=== PATIENT | female | born 1990 | race Caucasian/White ===

== ENCOUNTER 2024-10-17 14:22 | Emergency (ER) | payer MEDICAID, SELFPAY ==
[2024-10-17] VITALS (77 sets, daily range): BP systolic 80–135; BP diastolic 38–80; PULSE 93–158; RESP 20–52; TEMP 36.8; O2SAT 96–100
--- NOTE | 2024-10-17 14:30 | DI.CT_ITS ---
Exam(s) CT CHEST PE ABD PELVIS W EXAM: CT CHEST PE ABD PELVIS W CLINICAL HISTORY: Septic, IVDU, abd pain, eval septic emboli, source. TECHNIQUE: Imaging Protocol: Axial CT angiography was performed with multi-slice acquisition and m ulti-planar and/or 3D reconstructions. CONTRAST MATERIAL: Intravenous: Omnipaque 350 Contrast volume:100 ml Oral: None COMPARISON: No exams were available for comparison FINDINGS: CHEST: PULMONARY ARTERIES: There are bilateral intraluminal filling defect within by segmental pulmonary art eries in both lower lobes consistent with pulmonary emboli. LUNGS: There are also multiple nodular infiltrates throughout both lung estrada involving all lobes, s ome exhibiting cavitation. These measure up to 2.7 x 2.2 cm size. There are no pleural effusions.. MEDIASTINUM: There is bilateral hilar adenopathy. There is also subcarinal adenopathy. There is no retrocrural adenopathy. No supraclavicular adenopathy. Visualized thyroid unremarkable. CARDIAC: Heart size is normal. There is no pericardial effusion. There is no significant shift of t he interventricular septum.Caliber of the thoracic aorta is within normal limits. No evidence of aor tic dissection. OSSEOUS: No significant osseous lesions.. ABDOMEN: There is no ascites. LIVER: There are no focal hepatic lesions nor dilatation of intrahepatic ducts. GALLBLADDER/BILIARY: No obvious gallbladder pathology. CBD is not dilated. PANCREAS: No evidence of pancreatic mass nor dilatation of the pancreatic duct. SPLEEN: Spleen is enlarged. The craniocaudal measurement of the spleen is 17.5 cm. There are no int rasplenic lesions. No splenic abscess is evident. Splenic and portal veins are patent. ADRENALS: There are no significant adrenal masses. KIDNEYS:No cysts evident. No calculi nor hydronephrosis. No solid renal masses. ABDOMINAL AORTA: Abdominal aorta is not enlarged. LYMPH NODES: There is no retroperitoneal or para-aortic adenopathy. ABDOMINAL WALL/GI: No evidence of significant anterior abdominal wall hernia. No bowel obstruction. PELVIS: LYMPH NODES: There is no intrapelvic nor inguinal adenopathy. GI: No evidence of appendicitis.No evidence of sigmoid diverticulitis. URINARY BLADDER: No calculi nor masses evident REPRODUCTIVE: Uterus and adnexal regions unremarkable. No free fluid in the pelvis evident. OSSEOUS: No significant osseous lesions. No fractures. No listhesis. IMPRESSION: 1. Study is positive for the presence segmental pulmonary emboli in lower lobe vessels both lungs. I n addition, there also multiple nodular masses/infiltrates throughout both lung estrada, some being pa rtially cavitated. No pleural effusions but there is bilateral hilar and subcarinal lymphadenopathy. First consideration here is for septic emboli. 2. There is splenomegaly noted. No evidence of abscess nor other lesions within the enlarged spleen. 3. No ascites. 4. No significant osseous findings. Report called by myself to ER physician 10/17/2024 at 4:30 p.m. RADIATION DOSE DELIVERED: 1,033.02mGy.cm Total DLP DATA REPOSITORY: All CT scans at this facility are submitted to the National Radiology Data Registry (NRDR) Dose Index Registry (DIR) with the [employer] (ACR). RADIATION OPTIMIZATION: All CT scans at this facility use at least one of these dose optimization te chniques: automated exposure control; mA and/or kV adjustment per patient size (includes targeted exa ms where dose is matched to clinical indication); or iterative reconstruction.
[2024-10-17 15:02] LABS: Lactate 6.1 mmol/L (0.6-1.4)
[2024-10-17 15:04] LABS: HCT 33.8 % (36.0-46.0); MCH 28.4 pg (27.0-33.0); MCHC 35.5 % (32.0-36.0); MCV 80 fL (80-95); RBC 4.23 10^6/uL (3.93-5.22); RDW 13.9 % (11.7-14.6); RDW-SD 40.8 fL; WBC 6.93 10^3/uL (4.4-10.8)
[2024-10-17 15:16] LABS: Prothrombin Time 13.2 sec (9.1-11.1)
[2024-10-17 15:26] LABS: Platelet Count 27 10^3/uL (130-400)
[2024-10-17 15:27] LABS: Absolute Lymphocyte Count 0.55 10^3/uL (1.2-3.4); Absolute Monocyte Count 0.49 10^3/uL (0.1-0.8); Bands % 8 %; Metamyelocytes % 1
[2024-10-17 15:28] LABS: ALT 66 U/L (14-59); AST 197 U/L (15-37); Absolute Neutrophil Count 5.82 10^3/uL (1.2-6.7); Albumin 1.9 g/dL (3.4-5.0); Alkaline Phosphatase 122 U/L (46-116); Anion Gap 21.8 mmol/L (3-11); Bilirubin, Total 1.43 mg/dL (0.2-1.0); CO2 14.2 mmol/L (21.0-32.0); Calcium 7.5 mg/dL (8.5-10.1); Chloride 93 mmol/L (98-107); Diff Comment Manual Differential; Estimated GFR 15.37 (mL/min/1.73m2); Glucose 141 mg/dL (74-106); Sodium 129 mmol/L (136-145); Total Protein 7.1 g/dL (6.4-8.2); Troponin I 45 ng/L (<or=51)
[2024-10-17] MEDS: Omnipaque 350 MG/ML 100 ML BTL IJ (15:28)
--- NOTE | 2024-10-17 15:28 | W.ED.GENAD ---
Discharge Plan Disposition Patient Disposition: Transfer-Acute Inpatient Care Specific Acute Inpt Facility: [facility] Condition: Fair Discharge Details Clinical Impression: Severe sepsis with acute organ dysfunction, Endocarditis, Acute septic pulmonary embolism, Thrombocytopenia, Hypokalemia, Prolonged Q-T interval on ECG, Abnormal transaminases, ZULY (acute kidney injury), Hypocalcemia, Acidosis, lactic, Active intravenous drug use, Supraventricular dysrhythmia Primary Care Provider: Jorge Foster ED Provider: Jaclyn Washington Home Meds and New Rx's Prescriptions: No Action No Known Home Meds HPI General Mode of arrival: EMS. Date/Time Provider Initiated Documentation: 10/17/24 14:31. Limitations to Documentation: no limitations. Information obtained by: patient, family and old records reviewed. HPI Narrative: HPI: This is a 34-year-old female patient with a past medical history significant for IVDU, presenting for evaluation of general malaise. Patient reports that for the last week she has had bodyaches, shortness of breath, abdominal pain, and has just not felt well. She is reported by family to have had a recent relapse. The patient reports that she is not sure if she has had fevers but feels like she might have, states that she has tried hot showers for her symptoms without improvement. She has had nausea with vomiting, denies urinary symptoms such as dysuria or hematuria. Reports a childhood allergy to penicillin, rash. brought in by EMS for evaluation, noted to be tachypneic and tachycardic on their physical examination. Exam: Gen: awake and alert, appears acutely ill HEENT: PERRL, EOMs full and without nystagmus. External ears and nose normal, mucous membranes dry. Posterior pharynx without exudate or asymmetry Neck: Supple, full range of motion, no observable masses Lungs: Tachypneic, lung sounds clear and equal bilaterally CV: Heart with tachycardic rate, regular rhythm, strong distal pulses. Unable to auscultate any murmurs though there is a significant amount of background respiratory noise to auscultation Abdomen: Soft, nondistended, generalized tenderness to palpation without rigidity, rebound, guarding MSK: No joint swelling, no redness. Full ROM without limitation, no external traumatic findings. Skin: The patient has extensive scarring on her extremities and abdomen concerning for historical IVDU. No splinter hemorrhages or Janeway lesions Neuro: No apparent focal deficits or facial asymmetry, denies new numbness or tingling alert and oriented Psych: Appropriate for situation. MDM: This is a 34-year-old female patient presenting for evaluation of generalized bodyaches, shortness of breath and abdominal pain. I am concerned given her tachycardia and tachypnea, as well as her general toxic appearance. My differential includes but is not limited to sepsis, bacteremia, endocarditis, pneumonia, septic emboli, viral URI, skin and soft tissue infection, intra-abdominal infection including cholecystitis, appendicitis, diverticulitis, hepatitis, urinary tract infection, nephrolithiasis. I considered metabolic and electrolyte derangements, kidney injury and liver disease. Considered anemia. Will obtain a broad laboratory workup, to include CBC, CMP, lactate, blood cultures, urinalysis. I will obtain a ethanol level as well as a urine drug screen. Given the acute illness with systemic symptoms it is reasonable to proceed with CT pulmonary embolism study as well as CT abdomen and pelvis, and I will obtain a bedside echo. I will provide the patient with 2 L of IV fluids. ED Course: Bedside ultrasound as noted below, concerning for tricuspid vegetation which would represent endocarditis. For this reason a third blood culture was obtained prior to initiation of broad-spectrum antibiotics, to include Zosyn and vancomycin. Laboratory studies reveal no leukocytosis or anemia, but the patient does have notable thrombocytopenia to 27, with no active bleeding at this time. She does have an elevation in her INR to 1.3. Mild decrease in her sodium to 129, potassium to 3.0 (repleted orally and intravenously), with a BUN and creatinine elevation concerning for prerenal ZULY, with a BUN of 92 and a creatinine of 3.8. The patient has a decreased bicarb to 14 and an anion gap of 21, likely lactic acidosis given her initial lactate of 6.1. Urinalysis noninfectious, U tox positive for cocaine, viral swab negative. I reviewed the patient CT imaging, which is most notable for bilateral septic pulmonary emboli as well as a an enlarged spleen. The patient's repeat lactate was 5.5, and 1/3 L of IV fluid was provided. In addition, we repleted her potassium with 20 mEq IV and 40 mEq p.o., provided her with 2 g of mag for her prolonged QTc, and a gram of Tylenol for ongoing body pain. I discussed this case with our hospitalist who feels that she would be better served in a tertiary care facility given the access to [facility], CT surgery, ID, etc. [facility] refused this patient due to capacity, and so I discussed the case with the ICU provider at [facility] who has graciously accepted this patient for admission to their service for ongoing workup and management. While awaiting transfer, I did not the patient to go into a taxi supraventricular dysrhythmia. This was a rapid change, with a sustained rate of 140. She did have a change in the morphology of her P waves, I question accelerated junctional versus slow SVT, no evidence for flutter waves during vagal maneuvers. She remained hemodynamically appropriate during this event, but her blood pressure did decrease slightly from where she had been before. The first episode of tacky dysrhythmia was successfully aborted with vagal maneuvers. She did have a second episode and vagal maneuvers failed, for which she received 6 mg then 12 mg of adenosine to that effect. The patient was transferred from this department by EMS without incident. Jaclyn Washington MD Related Data Home Medications ?Medication ?Instructions ?Recorded ?Confirmed Unknown [No Known Home Meds] 10/17/24 10/17/24 Allergies Allergy/AdvReac Type Severity Reaction Status Date / Time Penicillins Allergy Severe Anaphylaxsi Verified 10/17/24 15:05 s General Stated Complaint: RespSymp FERNY: 3 Course Vital Signs Vital signs: Vital Signs Temperature 36.8 C 10/17/24 14:23 Pulse 126 H 10/17/24 14:23 Respiratory Rate 20 10/17/24 14:23 Blood Pressure 104/58 L 10/17/24 14:23 Pulse Oximetry 96 10/17/24 14:23 Temperature 36.8 C 10/17/24 14:23 Temperature Source Oral 10/17/24 14:23 Pulse 126 H 10/17/24 14:23 Respiratory Rate 20 10/17/24 14:23 Respiratory Effort Short of Breath 10/17/24 14:28 Respiratory Depth Normal 10/17/24 14:28 Blood Pressure 104/58 L 10/17/24 14:23 Pulse Oximetry 96 10/17/24 14:23 Oxygen Delivery Method Room Air 10/17/24 14:23 Oxygen Flow Rate 0 10/17/24 14:23 Pain Level 8 10/17/24 14:23 Lab/Test Results Lab/Test Results: 10/17/24 15:19 Blood Blood Culture - Pending 10/17/24 14:48 Blood Blood Culture - Pending 10/17/24 14:40 Blood Blood Culture - Pending Laboratory Tests Range/Units 10/17/24 14:48 VBG Lactate (0.6-1.4) mmol/L 6.1 H* Procedures Other Description: Cardioversion The patient was noted to transition rapidly to a supraventricular tachydysrhythmia with a fixed rate of 143, and vagal maneuvers were attempted x 1 with resolution and recurrent return to her baseline sinus tachycardia with a rate of the low 100s. She was noted to convert to this tachydysrhythmia once more during this provider's examination. Vagal maneuvers reattempted x 2 without success. We are optimizing the patient's fluid balance and electrolytes and I suspect that this is likely due to her severe systemic illness. Given the distinct change, I am concerned for a potential reentrant rhythm such as SVT, and for this reason the patient was provided with 6 mg followed by 12 mg of adenosine, with resolution of this new rhythm and a return to sinus tachycardia with a rate of 105. The patient tolerated this procedure well with no adverse effects such as low blood pressure or alteration in mental status. Medical Decision Making Quality:SDOH Health Related Social Needs: No Data to Display Critical Care Time Critical Care Time Critical Care Time: Yes Total Critical Care Time: 60 Attestation: Upon my evaluation, this patient had a high probability of imminent or life-threatening deterioration due to severe sepsis without septic shock, endocarditis, septic emboli, thrombocytopenia, hypokalemia, SVT, which required my direct attention, intervention, and personal management. I have personally provided 60 minutes of critical care time exclusive of time spent on separately billable procedures. Time includes review of laboratory data, radiology results, discussion with consultants, and monitoring for potential decompensation. Interventions were performed as documented above. Jaclyn Washington MD [facility] All Active Problems (Updated 10/17/24 @ 19:28 by Jaclyn Washington MD) Supraventricular dysrhythmia (Acute) Active intravenous drug use (Acute) Acidosis, lactic (Acute) Hypocalcemia (Acute) ZULY (acute kidney injury) (Acute) Abnormal transaminases (Acute) Prolonged Q-T interval on ECG (Acute) Hypokalemia (Acute) Thrombocytopenia (Chronic) Acute septic pulmonary embolism (Acute) Endocarditis (Acute) Severe sepsis with acute organ dysfunction (Acute) Social History Smoking/Tobacco Use Status: Current every day Smoking risk assessment performed?: Yes Alcohol Intake: former Drug use: Current Sobriety Substance use type: former substance user and IV drugs Housing: apartment POCUS Exam (ED) Limited Cardiac Exam DATE OF EXAM: 10/17/24 TIME OF EXAM: 15:29 PROVIDER THAT PERFORMED THE STUDY: Jaclyn Washington IS THIS A REPEAT EXAM DURING THIS ENCOUNTER: no REASON FOR EXAM: Septic Shock VISUALIZED STRUCTURES: Four Chambers VIEW OBTAINED: Parasternal long-axis, Parasternal short-axis and Subxiphoid PERTINENT FINDINGS/IMPRESSION: Other Hyperdynamic, concern for vegetation on tricuspid valve Exam complete
[2024-10-17 15:29] LABS: INR 1.3 (0.9-1.1); Poikilocytes 1+
--- NOTE | 2024-10-17 15:30 | RT.EKG_ITS ---
APPROVED REPORT Exam: Resting ECG Reason for Exam: Sepsis Patient Location: E HR:114 bpm ECG Measurements Heart Rate 114 AXIS MS 126 P 80 QRSd 103 QRS 65 QT 393 T 37 QTc 541 Conclusion Sinus tachycardia, rate 114 Prolonged QTc No STEMI
[2024-10-17 15:31] LABS: ETHANOL BLOOD < 3.0 mg/dL (<10)
[2024-10-17 15:33] LABS: BUN 92 mg/dL (7-18); CREATININE 3.8 mg/dL (0.55-1.02)
[2024-10-17] MEDS: Normal Saline - Diluent 50 ML VIAL IJ (15:44)
[2024-10-17] MEDS: Lactated Ringers 1,000 ML 1000 ML IV ×3 (15:58→18:34)
--- OUTSIDE RECORDS SUMMARY | 2024-10-17 16:17 | XMS_ITS | Encounter Summary ---
Author Organization [facility] [place] [address] Care Team Providers Care Publications Manager Name Role Phone Heather Colunga CNM Primary Care Provider + Encounter Details Date Type Department Care Team (Late st Contact Info) Description 04/12/2013 1:41 PM EDT - 04/12/2013 11:59 PM EDT Hospital [place] [id number] CLINIC, DR KADY Izquierdo, Duarte Meek MD [facility] [address] [place] [phone] Discharge Disposition: Home Social History Tobacco Use Types Packs/Day Years Used Date Smoking Tobacco: Every Day Cigarettes Comments Yes Sex and Gender Information Value Date Recorded Sex Assigned at Not on file Gender Identity Not on file Sexual Orientation Not on file documented as of this encounter Medications at Time of Discharge Medication Sig Dispensed Refills Start Date End Date VITS W-CA,FE,FA,<1MG, ( VITAMIN ORAL) Take by mouth. documented as of this encounter Plan of Treatment Not on file documented as of this encounter Procedures Procedure Name Priority Date/Time Associated Diagnosis Comments US OB DETAILED MORPHOLOGY Routine 04/12/2013 2:19 PM EDT documented in this encounter Results * US OB Targeted Morphology (04/12/2013 2:19 PM EDT) Anatomical Region Laterality Modality Pelvis, Abdomen Ultrasound 04/12/2013 2:19 PM EDT Narrative 04/12/2013 3:36 PM EDT ?OBSTETRICS REPORT ? (Signed Final 04/12/2013 03:36 pm) Patient Info ID: ? [id number] ? : ??[birth year] (22 yrs) Name: ? CATHY Tomas VICTORIA ?Visit Date: 04/12/2013 02:16 pm Performed By Performed By: ?Margaret Mustafa RDMS Attending: ? John SHARMA, E ??Candie Referred By: ? DUARTE IZQUIERDO MD OB History : ??4 BMI: ?29.8 Service(s) Provided [facility] - Targeted Morphology - Genetics - ? 19402 [id number] Indications FLUID COLLECTION AT POINT OF CORD INSERTION TO PLACENTA; NANDO 08/20/13 MFM TO READ Evaluation Num Of Fetuses: ?1 Heart Rate: ??161 ?bpm Cardiac Activity: ??Observed, normal rhythm Presentation: ?Breech Placenta: ?Anterior P. Cord ?Within Normal Limits Insertion: Amniotic Fluid NARGIS FV: ?Normal -------- Biometry -------- BPD: ?52.5 ??mm ?G. Age: ?? 22w 0d OFD: ?69.7 ??mm HC: ?192.6 ??mm ?G. Age: ?? 21w 4d AC: ?167.2 ??mm ?G. Age: ?? 21w 5d FL: ? 35.7 ??mm ?G. Age: ?? 21w 2d HUM: ?35.1 ??mm ?G. Age: ?? 22w 0d CER: ?23.2 ??mm ?G. Age: ?? 21w 4d NFT: ?4.17 ??mm CI: ?75.3 ??% ? 70 - 86 FL/HC: ? 18.5 ??% ? 15.9 - 20.3 HC/AC: ? 1.15 ?1.06 - 1.25 FL/BPD: ?68.0 ??% FL/AC: ? 21.4 ??% ? 20 - 24 Est. FW: ? 433 ?? gm ?0 lb 15 oz Gestational Age LMP: ? 22w 3d ?Date: ??11/06/12 ? NANDO: ?08/13/13 U/S Today: ? 21w 4d ?NANDO: ?08/19/13 Best: ?21w 3d ?? Det. By: ??Early ?NANDO: ?08/20/13 ? Ultrasound ? (01/26/13) Targeted Anatomy Central Nervous System Calvarium: ?Within Normal Limits Intracranial: ? Within Normal Limits Lat. Ventricles: ?Within Normal Limits Cerebellum: ? Within Normal Limits Choroid Plexus: ? Within Normal Limits Cisterna Magna: ? Within Normal Limits Spine Cervical: ? Visualized Thoracic: ? Visualized Lumbar: ? Visualized Sacral: ? Visualized Head/Neck Face: ? Within Normal Limits Nuchal Fold: ?Within Normal Limits Thorax Four Chamber: ? Within Normal Limits Cardiac Motion: ? Normal Rhythm R Outflow Tract: ?Visualized L Outflow Tract: ?Visualized Cardiac [place]: ? Visualized Diaphragm: ?Visualized Abdomen Ventral Wall: ? Visualized Stomach: ?Visualized Lt Kidney: ?Visualized Rt Kidney: ?Visualized Bladder: ?Visualized Extremities Lt Humerus: ? Within Nomal Limits Rt Humerus: ? Within Normal Limits Lt Forearm: ? Within Normal Limits Rt Forearm: ? Within Normal Limits Lt Hand: ?Within Normal Limits Rt Hand: ?Within Normal Limits Lt Femur: ? Within Normal Limits Rt Femur: ? Within Normal Limits Lt Lower Leg: ? Within Normal Limits Rt Lower Leg: ? Within Normal Limits Lt Foot: ?Visualized Rt Foot: ?Visualized Other Umbilical Cord: ? 3 vessel cord Cord Insertion: ? WIthin Normal Limits Comment: ? Nasal Bone: Visualized Cervix Uterus Adnexa Uterus: ?Synechiae seen Left Ovary: ?Not visualized Right Ovary: ?? Not visualized Impression 2nd Trimester - Targeted Morphology- Summary Single intrauterine with a gestational age of 21w 3d based on early outside ultrasound. Composite age based on the current ultrasound alone is 21w 4d. Amniotic fluid volume is normal. Current growth parameters are consistent indicating normal growth. There is a uterine synechiae in the posterior aspect of the uterus. There is a membrane separation, over the surface of the placenta, which may represent a venous cordero on the surface of the placenta. It measures 4 x 1.7 x 3.5cm. Detailed anatomic evaluation was performed and no structural abnormalities are noted. I ??viewed the images and agree with the above interpretation. Thank you for allowing us to participate in the care of CATHY VICTORIA. Please do not hesitate to call if you have any questions. ?Manoj Lopez MD Electronically Signed Final Report ?? 04/12/2013 03:36 pm Procedure Note Manoj Lopez MD - 04/12/2013 OBSTETRICS REPORT (Signed Final 04/12/2013 03:36 pm) Patient Info ID: [id number] : [birth year] (22 yrs) Name: CATHY VICTORIA Visit Date: 04/12/2013 02:16 pm Performed By Performed By: Margaret Mustafa [facility] Attending: Manoj Lopez MD Referred By: DUARTE IZQUIERDO MD OB History : 4 BMI: 29.8 Service(s) Provided [facility] - Targeted Morphology - Genetics - [id number] Indications FLUID COLLECTION AT POINT OF CORD INSERTION TO PLACENTA; NANDO 08/20/13 M TO READ Evaluation Num Of Fetuses: 1 Heart Rate: 161 bpm Cardiac Activity: Observed, normal rhythm Presentation: Breech Placenta: Anterior P. Cord Within Normal Limits Insertion: Amniotic Fluid NARGIS FV: Normal -------- Biometry -------- BPD: 52.5 mm G. Age: 22w 0d OFD: 69.7 mm HC: 192.6 mm G. Age: 21w 4d AC: 167.2 mm G. Age: 21w 5d FL: 35.7 mm G. Age: 21w 2d HUM: 35.1 mm G. Age: 22w 0d CER: 23.2 mm G. Age: 21w 4d NFT: 4.17 mm CI: 75.3 % 70 - 86 FL/HC: 18.5 % 15.9 - 20.3 HC/AC: 1.15 1.06 - 1.25 FL/BPD: 68.0 % FL/AC: 21.4 % 20 - 24 Est. FW: 433 gm 0 lb 15 oz Gestational Age LMP: 22w 3d Date: 11/06/12 NANDO: 08/13/13 U/S Today: 21w 4d NANDO: 08/19/13 Best: 21w 3d Det. By: Early NANDO: 08/20/13 Ultrasound (01/26/13) Targeted Anatomy Central Nervous System Calvarium: Within Normal Limits Intracranial: Within Normal Limits Lat. Ventricles: Within Normal Limits Cerebellum: Within Normal Limits Choroid Plexus: Within Normal Limits Cisterna Magna: Within Normal Limits Spine Cervical: Visualized Thoracic: Visualized Lumbar: Visualized Sacral: Visualized Head/Neck Face: Within Normal Limits Nuchal Fold: Within Normal Limits Thorax Four Chamber: Within Normal Limits Cardiac Motion: Normal Rhythm R Outflow Tract: Visualized L Outflow Tract: Visualized Cardiac [place]: Visualized Diaphragm: Visualized Abdomen Ventral Wall: Visualized Stomach: Visualized Lt Kidney: Visualized Rt Kidney: Visualized Bladder: Visualized Extremities Lt Humerus: Within Nomal Limits Rt Humerus: Within Normal Limits Lt Forearm: Within Normal Limits Rt Forearm: Within Normal Limits Lt Hand: Within Normal Limits Rt Hand: Within Normal Limits Lt Femur: Within Normal Limits Rt Femur: Within Normal Limits Lt Lower Leg: Within Normal Limits Rt Lower Leg: Within Normal Limits Lt Foot: Visualized Rt Foot: Visualized Other Umbilical Cord: 3 vessel cord Cord Insertion: WIthin Normal Limits Comment: Nasal Bone: Visualized Cervix Uterus Adnexa Uterus: Synechiae seen Left Ovary: Not visualized Right Ovary: Not visualized Impression 2nd Trimester - Targeted Morphology- Summary Single intrauterine with a gestational age of 21w 3d based on early outside ultrasound. Composite age based on the current ultrasound alone is 21w 4d. Amniotic fluid volume is normal. Current growth parameters are consistent indicating normal growth. There is a uterine synechiae in the posterior aspect of the uterus. There is a membrane separation, over the surface of the placenta, which may represent a venous cordero on the surface of the placenta. It measures 4 x 1.7 x 3.5cm. Detailed anatomic evaluation was performed and no structural abnormalities are noted. I viewed the images and agree with the above interpretation. Thank you for allowing us to participate in the care of CATHY VICTORIA. Please do not hesitate to call if you have any questions. Manoj Lopez MD Electronically Signed Final Report 04/12/2013 03:36 pm Duarte Izquierdo MD IMG US OB TAL YOUNGER documented in this encounter Visit Diagnoses Not on filedocumented in this encounter Care Teams Publications Manager Relationship Specialty Start Date End Date Heather Colunga CNM [address] [place] [address] PCP - General 04/09/13 05/03/13 documented as of this encounter
--- OUTSIDE RECORDS SUMMARY | 2024-10-17 16:17 | XMS_ITS | Encounter Summary ---
Author Organization Formerly [facility] [place] [address] Care Team Providers Care Dog Food Shredder Operator Name Role Phone Heather Colunga CNM Primary Care Provider + Reason for Visit * Reason Comments Advice Only Encounter Details Date Type Department Care Team ([facility] st Contact Info) Description 04/12/2013 3:00 PM EDT Office Visit Obstetrics [place] [address] aMnoj Lopez MD [facility] [address] OBSTETRICS [place] [address] Placental abnormality (Primary Dx) Discharge Disposition: Home Social History Tobacco Use Types Packs/Day Years Used Date Smoking Tobacco: Every Day Cigarettes Smokeless Tobacco: Never Alcohol Use Standard Drinks/Week Comments No 0 (1 standard drink = 0.6 oz pur e alcohol) Comments Yes Sex and Gender Information Value Date Recorded Sex Assigned at Not on file Gender Identity Not on file Sexual Orientation Not on file documented as of this encounter Last Filed Vital Signs Vital Sign Reading Time Taken Comments Blood Pressure 104/62 04/12/2013 2:53 PM EDT Pulse - - Temperature - - Respiratory Rate - - Oxygen Saturation - - Inhaled Oxygen Concentration - - Weight 85.8 kg (189 lb 1.6 oz) 04/12/2013 2:53 P M EDT Height 172.7 cm (5' 8) 04/12/2013 2:53 PM EDT Body Mass Index 28.75 04/12/2013 2:53 PM EDT documented in this encounter Progress Notes * Manoj Lopez MD - 04/12/2013 5:04 PM EDT Diagnosis/Maternal Medicine Consult Note Cathy Victoria is a 22 y.o. year old female who is at 21w4d gestation. She is seen in consultation at the request of Duarte Izquierdo MD for evaluation of anatomy and placenta. She was seen today for maternal- medicine consultation and ultrasound evaluation. Review of Systems Constitutional:feels well Movement: normal Contractions: none Leaking: None Bleeding: None There are no active problems to display for this patient. Past Medical History Diagnosis Date ??? Asthma ??? Anxiety Past Surgical History Procedure Date ??? Myringotomy 1992 ??? Tonsillectomy 1994 No family history on file. Social History Occupational History ??? Not on file. Social History Main Topics ??? Smoking status: Current Everyday Smoker -- 0.5 packs/day ??? Smokeless tobacco: Never Used ??? Alcohol Use: No ??? Drug Use: No ??? Sexually Active: Yes -- Male partner(s) OB History Grav Para Term Abortions TAB SAB Ect Mult Living 4 2 2 1 1 2 # Outc Date GA Lbr Kodak/2nd Wgt Sex Del Anes PTL Lv 1 CUR 2 TRM 3 TRM 4 TAB Current Outpatient Prescriptions Medication Sig Dispense Refill ? ? VITS W-CA,FE,FA,<1MG, ( VITAMIN ORAL) Take by mouth. Allergies Allergen Reactions ??? Penicillins Ultrasound Date: 04/13/2013 Amniotic fluid volume normal Placenta posterior ; 4 x 1.7 x 3 cm placental cordero on anterior surface of placenta. Uterine synechiae: left lateral aspect of uterus Presentation breech Growth appropriate for gestational age anatomy appears within normal limits. Physical Exam BP 104/62 Ht 172.7 cm (5' 8) Wt 85.775 kg (189 lb 1.6 oz) BMI 28.75 kg/m2 General: alert, well appearing, in no apparent distress, oriented to person, place and time HEENT: normocephalic, atraumatic Neurologic:alert, oriented, normal speech, no focal findings or movement disorder noted Psychiatric: Affect is Appropriate.; anxious appearing. Assessment and Recommendations: 22 y.o. year old female at 21w4d weeks gestation with normal appearing anatomy and appropriate growth, and what is likely a placental cordero or subchorionic hemorrhage on the surface of the placenta. The patient and her family were extremely anxious throughout the appointment, and remained standing the entire time, despite my suggesting they sit down to be more comfortable. We reviewed the ultrasound images in detail. We discussed the possible increased risk for growth disturbance, ruptured membranes/ delivery, as well as the fact that while these risks maybe increased, there is a high likelihood of an uncomplicated . I recommend local follow-upultrasound for growth at 28, 32 and 36 weeks. I strongly encouraged the patient to pursue smoking cessation. I appreciate the opportunity to be involved in this patients care, and am available if further questions should arise. Manoj LOPEZ MD 04/13/2013 Cc: Duarte Izquierdo MD [address] [place] [address] , with copy of ultrasound report documented in this encounter Plan of Treatment Not on file documented as of this encounter Visit Diagnoses Diagnosis Placental abnormality- Primary Other placental conditions affecting management of mother, unspecified as to episode of care documented in this encounter Care Teams Dog Food Shredder Operator Relationship Specialty Start Date End Date Heather Colunga CNM [address] [place] [address] PCP - General 04/09/13 05/03/13 documented as of this encounter
--- OUTSIDE RECORDS SUMMARY | 2024-10-17 16:17 | XMS_ITS | Clinical Summary ---
Author Organization [facility] Address [facility] [place] [address] Care Team Providers Care Energy Control Officer Name Role Phone Phill Musa MD Primary Care Provider [phone] Allergies Active Allergy Reactions Criticality Noted Date Comments Penicillins Medium 04/12/2013 Medications Medication Sig Dispensed Refills Start Date End Date Status VITS W-CA,FE,FA,<1MG, ( VITAMIN ORAL) Take by mouth. Active Social History Tobacco Use Types Packs/Day Years Used Date Smoking Tobacco: Every Day Cigarettes Smokeless Tobacco: Never Alcohol Use Standard Drinks/Week Comments No 0 (1 standard drink = 0.6 oz pur e alcohol) Sex and Gender Information Value Date Recorded Sex Assigned at Not on file Gender Identity Not on file Sexual Orientation Not on file Last Filed Vital Signs Vital Sign Reading [...] Mass Index 28.75 04/12/2013 2:53 PM EDT Plan of Treatment Health Maintenance Due Date Last Done Comments HIV screen 2009 Hepatitis C Screening 2009 Hepatitis B vaccine (0-59 yrs) (1) 2010 Tetanus/Diphtheria/Pertussis Vaccines (1 - Tdap) 07/24 HPV test 2021 PAP Smear 2021 Covid-19 Vaccine (1 - 2023- season) 2024 Influenza (Flu) vaccine (1 o f 1 - Influenza standard series) 07/04/2024 Care Teams Energy Control Officer Relationship Specialty Start Date End Date Phill Musa MD PCP - General 05/04/13
[2024-10-17 16:19] LABS: Bilirubin Small (Negative); Blood Moderate (Negative); Clarity Cloudy (Clear); Glucose Negative (Negative); Ketones Negative (Negative); Leukocyte Esterase Negative (Negative); Nitrite Negative (Negative); Specific Gravity 1.025 (1.005-1.025); Urobilinogen 0.2 mg/dL (Up to 0.2)
[2024-10-17] MEDS: PIPERACILLIN/TAZO 4.5 GM in Normal Saline 100 ML IVPB (16:27)
[2024-10-17 16:32] LABS: Bacteria Moderate HPF (Negative); C & S Indicated? No; Crystals Moderate Amorphous HPF (Negative); Epithelial Cells Rare HPF (Negative); Mucus Negative (Negative); Other Cells Few Renal (Negative)
[2024-10-17 16:33] LABS: *AMPHETAMINES SCREEN URINE Negative (Negative); *BARBITURATES SCREEN URINE Negative (Negative); *BENZODIAZEPINES SCREEN URINE Negative (Negative); Cannabinoids THC Negative (Negative); Cocaine Screen,Urine Positive (Negative); METHADONE URINE SCREEN Negative (Negative); OPIATES URINE SCREEN Negative (Negative)
[2024-10-17 16:34] LABS: Tricyclic Antidepressants Negative (Negative)
[2024-10-17 16:48] LABS: COVID-19 PCR Negative (Negative); Influenza A PCR Negative (Negative); Influenza B PCR Negative (Negative); RSV PCR Negative (Negative)
[2024-10-17 16:48] LABS: MRSA PCR Negative (Negative)
[2024-10-17 16:50] LABS: Source Nasopharynx
[2024-10-17 17:15] LABS: Troponin I 28 ng/L (<or=51)
--- NOTE | 2024-10-17 17:30 | RT.EKG_ITS ---
APPROVED REPORT Exam: Resting ECG Reason for Exam: SVT Patient Location: E HR:149 bpm ECG Measurements Heart Rate 149 AXIS [place] 100 P 11 QRSd 102 QRS 53 QT 356 T 268 QTc 560 Conclusion Supraventricular tachydysrhythmia, question accelerated junctional vs SVT Prolongued QTc Rate related Twave abnormalities
[2024-10-17] MEDS: Potassium Chloride 20 MEQ TABCR 40 MEQ PO (17:34)
[2024-10-17] MEDS: POTASSIUM CHLORIDE 10 MEQ/100 ML BAG 100 MEQ IV_INF ×2 (17:34→19:06)
[2024-10-17 17:42] LABS: Magnesium 2.3 mg/dL (1.8-2.4)
--- NOTE | 2024-10-17 17:45 | RT.EKG_ITS ---
APPROVED REPORT Exam: Resting ECG Reason for Exam: SVT Patient Location: E HR:101 bpm ECG Measurements Heart Rate 101 AXIS [place] 145 P 66 QRSd 99 QRS 64 QT 430 T 40 QTc 559 Conclusion Sinus tachycardia, rate 101 Prolongued QTc No STEMI
[2024-10-17 17:55] LABS: Lactate 5.5 mmol/L (0.6-1.4)
--- NOTE | 2024-10-17 18:15 | RT.EKG_ITS ---
APPROVED REPORT Exam: Resting ECG Reason for Exam: svt Patient Location: E HR:143 bpm ECG Measurements Heart Rate 143 AXIS [place] 108 P 11 QRSd 102 QRS 62 QT 360 T -36 QTc 555 Conclusion Supraventricular tachydysrhythmia, question accelerated junctional vs SVT Prolongued QTc Rate related Twave abnormalities
[2024-10-17 18:21] LABS: Troponin I 28 ng/L (<or=51)
[2024-10-17] MEDS: MAGNESIUM SULFATE 2 GM/50 ML BAG IV_INF (18:27)
--- NOTE | 2024-10-17 18:30 | RT.EKG_ITS ---
APPROVED REPORT Exam: Resting ECG Reason for Exam: SVT Patient Location: E HR:104 bpm ECG Measurements Heart Rate 104 AXIS [place] 140 P 62 QRSd 98 QRS 65 QT 406 T 49 QTc 533 Conclusion Sinus tachycardia, rate 104 Prolongued QTc No STEMI
[2024-10-17] MEDS: Adenosine 6 MG/2 ML VIAL ×2 (18:51)
[2024-10-17] MEDS: ACETAMINOPHEN 1,000 MG/100 ML BAG 400 MG IVPB (20:00)
--- NOTE | 2024-10-18 01:01 | NUR.NOTE ---
Blood Culture result-Gram Positive Cocci in Clusters in both aerobic and anaerobic bottles. [facility] Results successfully faxed to [phone]. Nursing Note:
--- NOTE | 2024-10-18 02:20 | NUR.NOTE ---
Aerobic blood culture bottle positive-gram positive cocci in clusters, report faxed to [facility]-patient transferred to @ [phone].Nursing Note:
== END 2024-10-17 20:39 | disposition short-term general hospital (02) ==
PROVIDERS: Emergency Provider Emergency Medicine; PCP Physician Assistant
DX: R65.20 Severe sepsis without septic shock (principal); I26.90 Septic pulmonary embolism without acute cor pulmonale; R16.1 Splenomegaly, not elsewhere classified; E87.6 Hypokalemia; D69.6 Thrombocytopenia, unspecified; E83.51 Hypocalcemia; I38 Endocarditis, valve unspecified; R94.31 Abnormal electrocardiogram [ECG] [EKG]; R74.01 Elevation of levels of liver transaminase levels; E87.20 Acidosis, unspecified
CPT/HCPCS: 36410; 71275; 74177; 80053; 80307; 87040; 87077; 87637; 87641; 93005; 93308; 96365; 96366; 96367; 96368; 96375; 99285; 80320; 81003; 81015; 83605; 83735; 84484; 85025; 85610; 87186; 93010; J0131; J0153; J2543; J3370; J3475; J3480; J3490

== ENCOUNTER 2024-11-23 16:32 | Inpatient (IN) | payer MEDICAID, SELFPAY ==
[2024-11-23 17:49] VITALS: BP 114/76; PULSE 91; RESP 14; TEMP 36; O2SAT 100
--- NOTE | 2024-11-23 18:18 | W.PM.HP.N ---
Date of service: 11/23/24 Time of Service: 18:18 Assessment and Plan Assessment and plan (1) MSSA bacteremia: Status: Acute Assessment and plan: [facility] records reviewed, case discussed with inpatient team from [facility]. Will plan to complete 9 more days of IV antibiotics through 12/01, cefazolin. F/u MRI spine and TTE as below. She will have PICC discontinued at discharge. (2) Infective endocarditis of tricuspid valve: Status: Acute Assessment and plan: Source of several embolic infections, infection has been controlled with therapy for above. Surgery for valve planned after discharge back at [facility]. (3) Opioid use disorder: Status: Acute Assessment and plan: We discussed options. She would like to avoid opioid agonist therapy, though she has been getting oral hydromorphone prn pain while inpatient. We did discussed naltrexone, but with upcoming surgery she is not a good candidate for this. Discussed non-medical therapy, support. (4) Right heart failure: Assessment and plan: Assciated with infected tricuspid valve. No signs of active CHF currently. Monitor. repeat echocardiogram recommended next week prior to discharge. (5) Smoker: Status: Acute Assessment and plan: Continue nicotene TD. (6) Septic pulmonary embolism: Assessment and plan: Therapeutic anticoagulation not recommended upon transfer from [facility]. Treating infection as above. (7) DVT prophylaxis: Status: Acute Assessment and plan: LMWH (8) Septic discitis of lumbar region: Status: Acute Assessment and plan: A/w epidural abscess, septic facet arthritis. F/u MRI w/wo recommended next week prior to completing therapy. (9) Discharge planning issues: Status: Acute Assessment and plan: Will need plan to avoid relapse after completing antibiotics 12/01, planning valve replacement 12/15/24 at [facility]. Other issues: suture removal right shoulder 11/24 weekly labs done 11/22, CBC and Cr due 11/29 Hep A/B vaccine prior to discharge Will need repeat HepB core Ab as outpatient in early December (10) Anemia: Status: Chronic Assessment and plan: a/w severe acute infection. Hgb 9.8 on 11/22 at [facility], follow History of Present Illness History of Present Illness Chief Complaint: valve infection Narrative: 34 yo F with history of IVDU and opioid use disorder and smoking who was admitted to [facility] after transferring from [facility] ED 10/17/24 with sepsis, tricuspid valve perforation secondary to endocarditis. MSSA bacteremia identified and treated. Her course was complicated by septic pulmonary emboli and associated right heart failure, and septic joint infections of her right shoulder, right knee, and lumbar spine with epidural abscess. She underwent debulking procedure of endocarditis with IR on 11/01. She had an I&D of septic right shoulder 11/10 and septic right knee 11/14. She had a negative aspiration of her left shoulder joint. She was initially on medical treatment for opioid use disorder but later changed her mind and was tapered off methadone. She states she feels better off of all medication and is confident she can stay away from drugs as she feels highly motivated. She feels well on admission. No chest pain, SOB, palpitations, or lightheadedness. No fevers/chills. She has been eating well. No GI or symptoms. Her shoulders and right knee are still stiff. Review of Systems All systems reviewed & are unremarkable except as noted in HPI and below PFSH All Active Problems (Updated 11/24/24 @ 09:29 by Ervin Bartlett) Anemia (Chronic) Septic discitis of lumbar region (Acute) MSSA bacteremia (Acute) Opioid use disorder (Acute) Discharge planning issues (Acute) Smoker (Acute) DVT prophylaxis (Acute) Septic arthritis of knee, right (Acute) Septic arthritis of shoulder, right (Acute) Infective endocarditis of tricuspid valve (Acute) Medical History (Updated 11/24/24 @ 09:29 by Ervin Bartlett) Ectopic atrioventricular node tachycardia Septic pulmonary embolism Right heart failure Social History (Updated 11/23/24 @ 19:55 by Ervin Bartlett) Smoking/Tobacco Use Status: Current every day Smoking risk assessment performed?: Yes Alcohol Intake: former Drug use: Current Sobriety Substance use type: former substance user and IV drugs Housing: house Additional Social history: Living with mother and 3 kids in [facility] Allergies and Home Medications Allergies Allergy/AdvReac Type Severity Reaction Status Date / Time Penicillins Allergy Severe Anaphylaxsi Verified 10/17/24 15:05 s Home Medications ?Medication ?Instructions ?Recorded ?Confirmed ?Type Unknown [No Known Home Meds] 10/17/24 11/23/24 History Exam Narrative Exam Narrative: GEN: Alert and oriented x 4, pleasant and cooperative, gives linear history. No acute distress at rest. HEENT: Head atraumatic. Conjunctiva clear, no icterus. PEERL, EOMI. no rhinorrhea. MMM, OP benign. Neck is supple with no masses or lymphadenopathy, trachea midline LUNGS: CTAB with normal effort CV: RRR with 2/6 systolic murmur at apex to axilla. No gallops rubs. ABD: active bowel sounds, soft, nontender and nondistended. No masses. EXT: no cyanosis, clubbing, or edema MSK: No joint redness or heat. Right shoulder with diffusely limited ROM, mildly tender. Right knee also mild tenderness and effusion. NEURO: CN 2-12 grossly intact. Normal movement of 4 extremities. Normal speech and coordination. No tremor SKIN: No rashes or open wounds. PSYCH: normal mood and affect Results Last Vital Signs Temp 36.0 C L 11/23/24 17:49 Pulse 91 H 11/23/24 17:49 Resp 14 11/23/24 17:49 BP 114/76 11/23/24 17:49 Pulse Ox 100 11/23/24 17:49 Time Spent Time spent with Patient: >75 minutes Time was spent: preparing to see the patient(eg.review tests), obtaining and/or reviewing separately otained hiistory, ordering medications,tests, procedures, referring, communicating with other health workforce investment act career manager, indepentently interpreting results, counseling the patient and care coordination
[2024-11-23 19:37] VITALS: BP 105/66; PULSE 95; RESP 15; TEMP 36.5; O2SAT 100
--- NOTE | 2024-11-23 19:59 | W.PC.ACHO ---
Registration Status: Primary Language: Preferred Language: Medical / Surgical History (Last Updated 11/23/24 @ 18:33 by Ervin Bartlett) Septic pulmonary embolism Right heart failure Most Recent Vital Signs Temperature 36.5 C 11/23/24 19:37 Temperature Source Tympanic 11/23/24 19:37 Pulse 95 H 11/23/24 19:37 Pulse Rhythm Regular 11/23/24 17:49 Respiratory Rate 15 11/23/24 19:37 Respiratory Effort Normal, Non-Labored 11/23/24 17:49 Respiratory Depth Normal 11/23/24 17:49 Respiratory Pattern Normal 11/23/24 17:49 Blood Pressure 105/66 11/23/24 19:37 Pulse Oximetry 100 11/23/24 19:37 Oxygen Delivery Method Room Air 11/23/24 19:37 Oxygen Flow Rate 0 11/23/24 19:37 Pain Level 0 11/23/24 19:37 Allergies Penicillins Allergy (Severe, Verified 10/17/24 15:05) Anaphylaxsis Diet Orders Category Date Time Status Regular/Normal [DIET] Nutrition 11/23/24 Dinner Active Falls Risk Assessment History of Falls No History 11/23/24 17:49 Contributing Factors No Factors 11/23/24 17:49 Ambulatory Aids Independent 11/23/24 17:49 Tubes/Lines W/no contributing factors 11/23/24 17:49 Gait Evaluation No gait disturbance 11/23/24 17:49 Cognition No cognitive impairment 11/23/24 17:49 Fall Total Score 10 11/23/24 17:49 Level of Risk Standard/Low Risk 11/23/24 17:49 Problems (Last Updated 11/23/24 @ 18:33 by Ervin Bartlett) Discharge planning issues (Acute) Smoker (Acute) DVT prophylaxis (Acute) Septic arthritis of knee, right (Acute) Septic arthritis of shoulder, right (Acute) Infective endocarditis of tricuspid valve (Acute) v v v v v v v v v Sending and/or Receiving Nurses: Please use comment section below to note any information pertinent to the patient hand-off not included above. Information / Comments: Report received from:Tiana at [facility] at 1650 11/23
[2024-11-23] MEDS: Nicotine 21 MG/24 HR PATCH TD (23:10)
[2024-11-23] MEDS: ceFAZolin 2 GM/50 ML BAG IVPB (23:10)
[2024-11-23] MEDS: Metoprolol 25 MG TAB PO (23:12)
[2024-11-23] MEDS: Normal Saline Flush 10 ML SYR IVP (23:13)
[2024-11-23 23:53] VITALS: BP 107/74; PULSE 93; RESP 15; TEMP 36.6; O2SAT 100
[2024-11-24 08:02] VITALS: BP 116/66; PULSE 82; RESP 16; TEMP 36.5; O2SAT 98
[2024-11-24] MEDS: Enoxaparin 30 MG/0.3 ML SYR SC (08:37)
[2024-11-24] MEDS: Metoprolol 25 MG TAB PO ×2 (08:37→21:24)
[2024-11-24] MEDS: Normal Saline Flush 10 ML SYR IVP ×4 (08:38→21:22)
[2024-11-24] MEDS: ceFAZolin 2 GM/50 ML BAG IVPB ×2 (08:38→16:36)
--- NOTE | 2024-11-24 09:05 | NUR.NOTE ---
Stitches from R shoulder removed per order from [facility]. Nursing Note:
[2024-11-24] MEDS: Nicotine 21 MG/24 HR PATCH TD (11:23)
--- NOTE | 2024-11-24 15:47 | CHAPLAIN ---
Cathy was sitting up in bed when I visited. She said she's fine when I introduced myself and explained my role. Cathy said her mom will be in to visit later today. I will continue to visit.
--- NOTE | 2024-11-24 15:58 | CMSA_ITS ---
Date of service: 11/24/24 Time of Service: 08:45 SB Psychosocial/Act. [facility] Admission Admission Date: 11/23/24 Admission From:: [facility] Diagnosis:: bacteremia, infective endocarditis of tricuspid valve, epidural abscess, septic arthritis Swing Bed Admission Swing Bed Admit Date:: 11/23/24 Swing Bed Level of Care: Level 1/SNF Social Supports PREVIOUS FUNCTIONAL STATUS/SOCIAL/FAMILY SUPPORTS:: Cathy lives with her Mom, Paris, and her 3 children Kenny 16, Rolf 14, Luis 11, in an apartment i [facility]. Cathy is not currently working. Cathy has a history of IVDA, and is very pleased to be clean. Her main goal is to get healthy, and stay sober. She was offered the Rumper, and was informed that the Senior Loss Control Specialist is available to her at any time should she feel that she needs it. Cathy is independent in all of her ADLs. Prior to Admission Living Arrangements/Environment Prior to Admission:: Independent, as above, with mom and 3 children in apartment in [place]. Education Highest Grade Completed:: 11 Where did you attend School:: [employer] Work History Employment Status:: currently unemployed Benefits Financial: Medicaid Jainism Active Nondenominational Member:: No Advance Directives for Healthcare If no AD, do you want more information:: No Community Community Supports/Involvement: Cathy is not involved in any type of community programs. She is not attending [employer], but is thinking about attending some on-line meetings. Interests Hobbies:: TV Other Activities:: Main interests are her children and family. Cathy is very close with her sister Genevieve. Cathy likes to color. She feels it helps her relax. Cathy was given a coloring book and crayons today by CM. Present Functional Status Physical Abilities:: independent. A little sore and slow due to her septic arthritis, but she feels she is improving Cognitive:: no issues noted Communication:: no issues noted Sensory Systems: no issues noted Behavior:: no issues noted Medical History PAST MEDICAL HISTORY/PAST SURGICAL HISTORY:: anemia, ectopic atrioventricular node tachycardia, septic pulmonary embolism, right heart failure General Health:: Prior to this life threatening illness, Cathy was in fair health. Prior to this event Cathy was using illegal substances and IV drugs Admission Data Reason for Swing Bed Admission:: completion of IV abx course due to severe sepsis Discharge Plan:: Cathy will be discharged home on 12/01 after the completion of her IV abx course. She will follow up with her PCP, and also the cardiac team at [email or web address] Cathy has an appointment with at [facility] [[email or web address]] cardiology on 12/08, and is scheduled to have a valve replacement on 12/15/24. Cathy will also need a f/u MRI of her spine and an echocardiogram prior to discharge. Cathy will continue per her plan of care and transport home in a private vehicle. Assessment: Admitted to [facility] for IV antibiotics through 12/01. Video Game Script Writer: Fabi Davila Date Assessment was completed:: 11/24/24
--- NOTE | 2024-11-24 16:42 | CM.SWINGPC ---
Date of service: 11/24/24 Time of Service: 16:43 Swingbed Plan of Care Activites/Discharge Plan of care: SWING BED PROGRAM ACTIVITIES/DISCHARGE PLAN OF CARE ACTIVITIES PLAN Date:11/24/24 Identified Need:Cathy stated that she could use something to help her spend the time and to keep her mind from racing. Cathy stated that she likes to color. Cathy was provided with a coloring book and crayons. Intervention/Plan:coloring book and crayons were provided Initials pk DISCHARGE PLAN Date:11/24/24 Identified Need:Cathy will be discharged home on 12/01/24 after the completion of her abx course. She will need an MRI and echocardiogram prior to discharge. She will f/u with her community providers. Cathy has a cardiology appt on 12/08/24 and is planned to have a valve replacement on 12/15/24. Intervention/Plan: Initials
[2024-11-24 21:24] VITALS: BP 105/75; PULSE 93; RESP 16; TEMP 36.9; O2SAT 98
[2024-11-25] MEDS: ceFAZolin 2 GM/50 ML BAG IVPB ×4 (00:42→23:36)
[2024-11-25 07:40] VITALS: BP 103/67; PULSE 82; RESP 18; TEMP 36.5; O2SAT 100
--- NOTE | 2024-11-25 08:31 | IN_ITS ---
PT Notes Visit Reasons: gram posit bacteremia,sept emboli,osteomyelyt,endo Physical Therapy Inpatient Initial Evaluation Date: 11/25/2023 Referring Doctor: Ervin Bartlett MD PT Orders: PT CONSULT: Limited ability. Septic arthritis R shoulder, R knee. Limited ROM B shoulders Precautions: Fall. Standard. WBAT on B UE/LE. Patient Profile/Admitting Diagnosis: Patient is a 34 year-old female who converted to swing bed level of care on 11/24/2024 for management of MSSA bacteremia, infective endocarditis of tricuspid valve with [place] [facility] [place] opiod use disorder, R heart failure, septic pulmonary embolism, septic discitis of lumbar region, and anemia. She is S/P debulking procedure of perforated tricuspid valve from endocarditis on 11/01/24 and is S/P irrigation and debridement of septic R shoulder and septic R knee on 11/14/2024. PMHX: All Active Problems (Updated 11/24/24 @ 09:29 by Ervin Bartlett) Anemia (Chronic) Septic discitis of lumbar region (Acute) MSSA bacteremia (Acute) Opioid use disorder (Acute) Discharge planning issues (Acute) Smoker (Acute) DVT prophylaxis (Acute) Septic arthritis of knee, right (Acute) Septic arthritis of shoulder, right (Acute) Infective endocarditis of tricuspid valve (Acute) Medical History (Updated 11/24/24 @ 09:29 by Ervin Bartlett) Ectopic atrioventricular node tachycardia Septic pulmonary embolism Right heart failure Social History/Home Situation: Lives with mother and sister in aprivate home with 5 steps to enter with rails. Has 2 kids. Independent with all all mobility ADLs prior to srugery. Equipment Owned/DME: None Subjective: Per Nurse Roman, patient's BP was a little soft earlier today. Patient very pleasant and cooperative. Reported pain in and limitation of motion in R shoulder and R knee. Objective: General Observation: Resting in bed. IV for Abx set up by Nurse Roman Mental Status: Alert and oriented as to person, place, time, and purpose. Able to pay attention, focus, and respond appropriately. Pain: 4-5/10 in R shoudler and R knee Vital Signs: See below ROM: Right Upper Extremity: Shoulder Flexion less than 10 degrees actively with moderate pain at end of range. Shoulder abduction less than 10 degrees actively with moderate pain at end of range. Elbow flexion WFL. Wrist flexion WFL. Functional opening and closing of hand WFL. Right Lower Extremity: Hip flexion WFL. Hip abduction WFL. Knee flexion 10 degrees to 100 degrees. Knee extension -10 degrees. Ankle dorsiflexion WFL. Ankle plantarflexion WFL. Strength: Right Upper Extremity: Shoulder flexors 2-/5. Shoulder abductors 2-/5. Elbow flexors 3/5. Elbow extensors 3/5. Senior Systems Architect strong. Right Lower Extremity: Hip flexors 4-/5. Hip abductors 4-/5. Knee flexors 3-/5. Knee extensors 3-/5. Ankle dorsiflexors 4/5. Ankle plantarflexors 4/5. Bed Mobility/Transfers: Supine to sit independent Sit to supine independent Sit to stand independent Stand to sit independent Bed to toilet independent Toilet to bed independent Bed to toilet independent Reclining chair to bed independent Gait: Stand by assist with 250 feet of level surface ambulation without assistive device with wheelchair follow for safety. Ana decreased. Seated rest needed to minimize fatigue. HR 111 bpm, SAO2 100% on RA, 105/61 mmHg. Stairs: Up and down 3 x 4-inch steps and 2 x 6-inch steps while holding onto B rails for support with minimal cues given for correct limb sequence, hand placement, and posture to minimize pain and reduce fall risk. HR 114 bpm, SAO2 100% on RA, 112/75 mmHg. THERA ACT: Educated and trained on room exercises using green theraband for the LE-- seated clam shells x 5 for 3 sets after resting 2-3 minutes after each set and seated marches x 5 for 3 sets after resting 2-3 minutes after each set done every 2-3 hours apart. Balance: Static Sitting: Normal Dynamic Sitting: Normal Static Standing: Good Dynamic Standing: Good Special Tests: Mobility Limitations Standardized Measure [facility] AM-PAC 6 clicks Basic Mobility Inpatient Short Form: Raw Score: 24 CMS Score: 0% deficit Informed Consent/Education: Patient was instructed in purpose of PT consult and plan of care. Agreeable to proceed with established PT POC to achieve personal goals. Assessment: Patient presents with clinical signs and symptoms consistent with current/admitting diagnoses that have resulted to mobility limitations, gait instability, generalized weakness, and overall ADL decline as demonstrated by the following impairment level findings: 1. Decreased strength to R shoulder and R knee major muscle groups 2. Impaired standing balance 3. Impaired activity tolerance 4. Limitation of joint range of motion in R shoulder and R knee Impairments are contributing to the following functional limitations: 1. Increased completion time for mobility ADL performance 2. Increased risk for falls Patient is assessed as a 19760 low complexity based on the following: History: 34-year-old female with past medical history as indicated above Examination: Demonstrable impairment in strength, balance, and mobility level with underlying impairments and functional limitations as exhibited above Presentation: Evolving Decision Makin moderate complexity Goals: Goals X1 week 1. Independent gait on level surface with use of no device for at least 600 feet without report of pain nor dyspnea 2. Independent stair negotiation while holding onto B rails for at least 5 steps without report of pain nor dyspnea 3. Independent with home exercise program 4. Good static and dynamic standing balance/tolerance Plan of Care/Treatment Plan: 1x/day, 7 days/week x 1 week. Plan of care has been reviewed with the GLASS OR MIRROR INSPECTOR providing the service under Physical Therapy direction. Initiate Physical Therapy intervention for pain management and gentle strengthening of R shoulder and R knee, stairs training, and balance training. Treatment focus: Pre-medicate for pain. Isometric exercises to R shoulder, PROM to R shoulder. Progressive strengthening to R quads. Balance training. May walk with nursing staff in hallway 1-2x day with wheelchair follow. Monitor vital signs during session. DISCHARGE RECOMMENDATIONS: [] Home with no services [] [] Home with services [specify] [] Home with outpatient PT [] [] SNF for continued rehabilitation [] [] [facility] [] [] SNF versus LTC based on ability to participate and progress [] [X] HH PT vs OP PT for continued post-op rehab of R shoulder and R knee, stairs training, and balance training TREATMENT CODE/TIME: 67703 x 20 minutes for 1 unit, 62411 x 26 minutes for 2 units (8:31-9:17). Thank you for the opportunity to participate in the care of this patient. Subha Espinoza PT, DPT, CLT [facility] [place], [place]
[2024-11-25] MEDS: Folic Acid 1 MG TAB PO (08:44)
[2024-11-25] MEDS: Normal Saline Flush 10 ML SYR IVP ×4 (08:44→23:37)
[2024-11-25] MEDS: Metoprolol 25 MG TAB PO ×2 (08:44→20:41)
[2024-11-25] MEDS: Nicotine 21 MG/24 HR PATCH TD (08:44)
[2024-11-25] MEDS: Enoxaparin 30 MG/0.3 ML SYR SC (08:44)
--- NOTE | 2024-11-25 10:40 | W.NUTRFU ---
Date of service: 11/25/24 Time of Service: 10:41 Nutrition Note NOTE: pt chart screened and pt was visisted yesterday - she denied nutrition concerns and did not have any questionsl. initial screening of her chart puts her at low nutrition risk currently. will follow until d/c for any changes in nutritional status Time Spent in Nutritional Counseling and Treatment: 5 min
--- NOTE | 2024-11-25 14:50 | CMPROGNOTE_ITS ---
Date of service: 11/25/24 Time of Service: 11:50 Care Management Progress Note Progress Note Text Progress Note Text: Cathy was sitting up in the bed when CM met with her today. She was very pleasant, and easily engaged. She was pleased to work with PT today, and is eager to continue working with them. PT has recommended out patient VS HH PT. CM spoke to Cathy about this. Cathy does not have a car presently, and is unsure she could get to outpatient PT. She is going to see if she can secure some rides, because she would prefer outpatient PT and the use of their equipment. ANEUDY also gave Cathy a pamphlet from the [facility], and the Alcohol and Drug Treatment Guide. She was happy to have them. Her Mom came in about 1/2 way through the visit, and asked for those resources as well, she was pleased Cathy had already received them. Cathy is unsure that she would like to attend local meetings, as she has a history with many of the attendants. Discharge Potential Discharge Needs: Imaging/labs (needs MRI and echo prior to discharge), PCP F/U Appt and Other (cardiology appointment on 12/08 in anticipation of tricuspid valve replacement on 12/15.) Anticipated Barriers to Discharge: None Identified Patient/Family Education Needs: Review discharge instructions, discuss Ask Me Three Transportation: Private vehicle Plan: Anticipate that Cathy will be discharged home on 12/01 after completion of her antibiotic course and the required imaging. She will f/u with cardiology on 12/08 and continue per plan of care. Cathy will discharge home in a private vehicle. CM will continue to follow and update the plan as needed. Social Determinants of Health Screening Social Determinants of Health last assessed: 11/25/24 Will the Patient Participate in the Screening?: Yes Do you worry about having a steady place to live?: no Problems where you live: no known problems In the past 12 months, have you had to go without electric, gas, oil or water in your home?: no Have you or anyone in your house had to go without enough food to eat?: no Has lack of transportation kept you from medical appointments or from doing things needed for daily living?: no Has anyone in your life made you feel unsafe or unsupported?: no How hard is it for you to pay for the very basics like food, housing, medical care, and heating? Would you say it is:: Not hard at all Do you want help finding or keeping work or a job?: I do not need or want help If for any reason you need help with day-to-day activities such as bathing, preparing meals, shopping, managing finances, etc., do you get the help you need?: I don?t need any help How often do you feel lonely or isolated from those around you?: Never Do you speak a language other than [place] at home?: No Does the patient want assistance with any of the above?: No Anticipated HH Services Anticipated HH Services at Discharge [facility] Needed, OT and PT Anticipated Date of Discharge: 12/01/24. Following Provider: bala horta.
[2024-11-25 20:39] VITALS: BP 108/72; PULSE 89; RESP 17; TEMP 36.5; O2SAT 99
[2024-11-26 07:25] VITALS: BP 106/72; PULSE 87; RESP 17; TEMP 36.5; O2SAT 99
[2024-11-26] MEDS: ceFAZolin 2 GM/50 ML BAG IVPB ×2 (08:01→16:18)
[2024-11-26] MEDS: Normal Saline Flush 10 ML SYR IVP ×2 (08:02→19:23)
[2024-11-26] MEDS: Nicotine 21 MG/24 HR PATCH TD (08:02)
[2024-11-26] MEDS: Metoprolol 25 MG TAB PO ×2 (08:03→19:21)
[2024-11-26] MEDS: Folic Acid 1 MG TAB PO (08:03)
[2024-11-26] MEDS: Enoxaparin 30 MG/0.3 ML SYR SC (10:09)
--- NOTE | 2024-11-26 14:38 | PT.INTREAT ---
PT Notes Visit Reasons: gram posit bacteremia,sept emboli,osteomyelyt,endo Inpatient Physical Therapy Treatment Note [facility] Date: 11/26/23 SUBJECTIVE: Cathy states that she is willing to walk this pm. c/o right knee stiffness, but blames the wrapping. OBJECTIVE: []? VITALS: ?monitored by nsg. Therapeutic Activities (36872p5): Direct one-on-one instruction in dynamic activities to improve functional performance. ? BED MOBILITY/TRANSFERS? independent with all transfers. ? Therapeutic Exercises (47611g4): Direct one-on-one instruction in therapeutic exercises to develop strength, endurance, range of motion and flexibility. ? Exercises ?HR, TR, LAQ, SLR Ambulation ? Assistive Device: none? Weight bearing: full Assist: S ? Distance:? 255'? Deviation: lack of TKE on the right. Min antalgia. ? Provided skilled instruction in proper exercise performance ASSESSMENT:? no LOB, although she reported feeling unsteady. No c/o pain. Has a good understanding of HEP which was given to her this am. PLAN: continue POC TREATMENT CODE/TIME: 15 min [id number]
[2024-11-26 19:28] VITALS: BP 117/74; PULSE 94; RESP 17; TEMP 37.5; O2SAT 99
[2024-11-27] MEDS: ceFAZolin 2 GM/50 ML BAG IVPB ×3 (00:28→16:03)
[2024-11-27 08:39] VITALS: BP 102/69; PULSE 103; RESP 16; TEMP 36.4; O2SAT 100
[2024-11-27] MEDS: Metoprolol 25 MG TAB PO ×2 (08:43→19:29)
[2024-11-27] MEDS: Normal Saline Flush 10 ML SYR IVP ×4 (08:43→19:30)
[2024-11-27] MEDS: Folic Acid 1 MG TAB PO (08:43)
[2024-11-27] MEDS: Nicotine 21 MG/24 HR PATCH TD (08:44)
[2024-11-27] MEDS: Enoxaparin 30 MG/0.3 ML SYR SC (08:47)
[2024-11-27] MEDS: IRON SUCROSE COMPLEX 300 MG in Normal Saline 250 ML 167 MG IVPB (10:58)
--- NOTE | 2024-11-27 13:10 | PT.INTREAT ---
PT Notes Visit Reasons: gram posit bacteremia,sept emboli,osteomyelyt,endo Physical Therapy Inpatient Treatment Note Date: 11/27/2023 Precautions: Fall. Standard. WBAT on B UE/LE. Subjective: Still limited and anxious about moving R shoulder. Has been walking with nurse in the hallway at least once a day. Objective: General Observation: Resting in bed. Mental Status: Alert and oriented as to person, place, time, and purpose. Able to pay attention, focus, and respond appropriately. Pain: 3-4/10 in R shoudler and R knee Bed Mobility/Transfers: Supine to sit independent Sit to supine independent Sit to stand independent Stand to sit independent Bed to toilet independent Toilet to bed independent Bed to toilet independent Reclining chair to bed independent Gait: Stand by assist with 350 feet of level surface ambulation without assistive device with NO wheelchair needed. Ana improving. Stairs: Up and down 6 x 4-inch steps and 4 x 6-inch steps while holding onto B rails for support, alternating/step-through gait pattern THERA EX: Direct one-on-one instruction and supervision on correct performance of isometric exercises for adduction, extension, and external rotation for R shoulder using a folded/taped towel with 5 sh x 5-10 reps. Balance: Static Sitting: Normal Dynamic Sitting: Normal Static Standing: Good Dynamic Standing: Good Assessment: Supervised ambulation in hallway by therapy/nursing staff due to patient's cardiac status to ensure safety. Plan of Care/Treatment Plan: 1x/day, 7 days/week x 1 week. Plan of care has been reviewed with the BUILDING INSULATION INSTALLER providing the service under Physical Therapy direction. Initiate Physical Therapy intervention for pain management and gentle strengthening of R shoulder and R knee, stairs training, and balance training. Treatment focus: Pre-medicate for pain. Isometric exercises to R shoulder, PROM to R shoulder. Progressive strengthening to R quads. Balance training. May walk with nursing staff in hallway 1-2x day with wheelchair follow. Monitor vital signs during session. DISCHARGE RECOMMENDATIONS: [] Home with no services [] [] Home with services [specify] [] Home with outpatient PT [] [] SNF for continued rehabilitation [] [] Shelter Care [] [] SNF versus LTC based on ability to participate and progress [] [X] HH PT vs OP PT for continued post-op rehab of R shoulder and R knee, stairs training, and balance training TREATMENT CODE/TIME: 53032 x 21 minutes for 1 unit (13:10-13:31).
[2024-11-27 19:36] VITALS: BP 112/63; PULSE 93; RESP 17; TEMP 36.6; O2SAT 98
[2024-11-28] MEDS: ceFAZolin 2 GM/50 ML BAG IVPB ×3 (00:10→17:00)
[2024-11-28 00:11] VITALS: BP 100/62; PULSE 84; RESP 16; TEMP 36.6; O2SAT 99
[2024-11-28 06:03] LABS: Abs Immature Grans 0.06 10^3/uL (0.0-0.06); Absolute Basophil Count 0.06 10^3/uL (0.0-0.2); Absolute Eosinophil Count 0.11 10^3/uL (0.0-0.7); Absolute Lymphocyte Count 1.54 10^3/uL (1.2-3.4); Absolute Monocyte Count 0.43 10^3/uL (0.1-0.8); Absolute Neutrophil Count 4.14 10^3/uL (1.2-6.7); Basophils % 0.9 %; Eosinophils % 1.7 %; HCT 32.9 % (36.0-46.0); HGB 10.2 g/dL (11.2-15.7); Immature Grans % 0.9 %; Lymphocytes % 24.3 %; MCV 94 fL (80-95); MPV 9.7 fL (8.0-11.0); Monocytes % 6.8 %; Neutrophils % 65.4 %; Platelet Count 273 10^3/uL (130-400); RBC 3.52 10^6/uL (3.93-5.22); RDW 17.2 % (11.7-14.6); RDW-SD 58.4 fL; WBC 6.34 10^3/uL (4.4-10.8)
[2024-11-28 06:19] LABS: Anion Gap 5.5 mmol/L (3-11); BUN 10 mg/dL (7-18); CO2 28.5 mmol/L (21.0-32.0); CREATININE 0.7 mg/dL (0.55-1.02); Calcium 9.7 mg/dL (8.5-10.1); Chloride 106 mmol/L (98-107); Estimated GFR 117.04 (mL/min/1.73m2); Glucose 90 mg/dL (74-106); Potassium 4.1 mmol/L (3.5-5.1); Sodium 140 mmol/L (136-145)
[2024-11-28 08:03] VITALS: BP 105/68; PULSE 89; RESP 14; TEMP 36.8; O2SAT 99
[2024-11-28] MEDS: Folic Acid 1 MG TAB PO (10:14)
[2024-11-28] MEDS: Metoprolol 25 MG TAB PO ×2 (10:14→21:33)
[2024-11-28] MEDS: Enoxaparin 40 MG/0.4 ML SYR SC (10:14)
[2024-11-28] MEDS: Normal Saline Flush 10 ML SYR IVP ×4 (10:16→21:34)
[2024-11-28] MEDS: Nicotine 21 MG/24 HR PATCH TD (10:20)
[2024-11-28] MEDS: Ergocalciferol 50000 UNITS CAP PO (13:22)
[2024-11-28] MEDS: IRON SUCROSE COMPLEX 300 MG in Normal Saline 250 ML 167 MG IVPB (14:05)
--- NOTE | 2024-11-28 17:48 | PTTR_ITS ---
PT Notes Visit Reasons: gram posit bacteremia,sept emboli,osteomyelyt,endo Physical Therapy Inpatient Treatment Note Date: 11/28/2023 Precautions: Fall. Standard. WBAT on B UE/LE. Subjective: Has not walked this morning. Agreeable to doing two big loops in the hallway for this session. Objective: General Observation: Resting in bed. Mental Status: Alert and oriented as to person, place, time, and purpose. Able to pay attention, focus, and respond appropriately. Pain: 3-4/10 in R shoulder and R knee Bed Mobility/Transfers: Supine to sit independent Sit to supine independent Sit to stand independent Stand to sit independent Bed to toilet independent Toilet to bed independent Bed to toilet independent Reclining chair to bed independent Gait: Stand by assist with 700 feet of level surface ambulation without assistive device with NO wheelchair needed. Ana improving. THERA EX: Worked on table top exercises using 2 washcloths to increase R shoulder flexion/extension, abduction/adduction, and ER/IR x 10 Balance: Static Sitting: Normal Dynamic Sitting: Normal Static Standing: Good Dynamic Standing: Good Assessment: Supervised ambulation in hallway by therapy/nursing staff due to patient's cardiac status to ensure safety. HEP to be provided for patient before discharge. Access Code: [email or web address] URL: [email or web address] Date: 11/28/2024 Prepared by: Subha Espinoza Exercises - Seated Scapular Retraction - 1 x daily - 7 x weekly - 1 sets - 10 reps - 5 hold - Isometric Shoulder Flexion at Wall - 1 x daily - 7 x weekly - 1 sets - 10 reps - 5 hold - Standing Isometric Shoulder Internal Rotation at Doorway - 1 x daily - 7 x weekly - 1 sets - 10 reps - 5 hold - Isometric Shoulder Extension at Wall - 1 x daily - 7 x weekly - 1 sets - 10 reps - 5 hold - Isometric Shoulder Abduction at Wall - 1 x daily - 7 x weekly - 1 sets - 10 reps - 5 hold - Standing Isometric Shoulder Extension with Doorway - Arm Bent - 1 x daily - 7 x weekly - 1 sets - 10 reps - 5 hold - Seated Shoulder Flexion Towel Slide at Table Top - 1 x daily - 7 x weekly - 1 sets - 10 reps - 5 hold - Seated Shoulder Abduction Towel Slide at Table Top - 1 x daily - 7 x weekly - 1 sets - 10 reps - 5 hold - Shoulder Abduction Towel Slide at Table Top - 1 x daily - 7 x weekly - 1 sets - 10 reps - 5 hold - Standing Single Arm Shoulder Flexion Towel Slide at Table Top - 1 x daily - 7 x weekly - 1 sets - 10 reps - 5 hold - Seated Shoulder Flexion Towel Slide at Table Top Full Range of Motion - 1 x daily - 7 x weekly - 1 sets - 10 reps - 5 hold - Standing Heel Raise - 1 x daily - 7 x weekly - 3 sets - 10 reps - Mini Squat - 1 x daily - 7 x weekly - 1 sets - 10 reps - 5 hold Plan of Care/Treatment Plan: 1x/day, 7 days/week x 1 week. Plan of care has been reviewed with the APPLIANCE PAINTER AND REFINISHER providing the service under Physical Therapy direction. Initiate Physical Therapy intervention for pain management and gentle strengthening of R shoulder and R knee, stairs training, and balance training. Treatment focus: Pre-medicate for pain. Isometric exercises to R shoulder, PROM to R shoulder. Progressive strengthening to R quads. Balance training. May walk with nursing staff in hallway 1-2x day with wheelchair follow. Monitor vital signs during session. DISCHARGE RECOMMENDATIONS: [] Home with no services [] [] Home with services [specify] [] Home with outpatient PT [] [] SNF for continued rehabilitation [] [] [facility] [] [] SNF versus LTC based on ability to participate and progress [] [X] HH PT vs OP PT for continued post-op rehab of R shoulder and R knee, stairs training, and balance training TREATMENT CODE/TIME: 15245 x 10 minutes for 1 unit, 70087 x 19 minutes for 1 unit (16:00-16:29).
[2024-11-28 21:32] VITALS: BP 116/74; PULSE 90; RESP 16; O2SAT 97
--- NOTE | 2024-11-29 | DI.MRI_ITS ---
Exam(s) MR LUMBAR SPINE WO/W EXAM: MR LUMBAR SPINE WO/W CLINICAL HISTORY: Bacteremic; abscess?. TECHNIQUE: Multiplanar multisequence MRI of the Lumbar spine was performed. COMPARISON: CT CT CHEST PE ABD PELVIS W from 10/17/2024 FINDINGS: Conus medullaris is at normal level. There is no evidence of conus mass nor subjacent clumping of in trathecal nerve roots to suggest arachnoiditis. The distal thecal sac appears unremarkable.There is no evidence of Tarlov intrasacral cysts nor other significant findings within the sacral canal There are no disc herniations. All of the lumbar vertebral discs exhibit normal height and signal. No evidence of discitis nor osteomyelitis at the level of the vertebral endplates. However, there is significant abnormal enhancement within and around the right facet joint at L4-5 le geneva, this abnormal enhancement also involving the right ligamentum flavum at this level and adjacent right posterolateral epidural space at this level. Abnormal enhancement is also seen in the inter sp inous space at L4-5 level and also within the inter spinous space at L3-4 level. There is no obvious abnormal enhancement within the facet joints at L3-4 level There is no abnormal enhancement at other levels in the lumbar spine. Soft tissues: paraspinal soft tissues appear unremarkable. IMPRESSION: 1. The main finding is abnormal enhancement within and around the right facet joint at L4-5 level, al so involving the adjacent right ligamentum flavum and with some some enhancement also seen with in th e right-side of the epidural space at this level. There is also abnormal enhancement within the inte r spinous ligament between the spinous process is of L4 and L5. Also abnormal enhancement in the int er spinous space 1 level above this at L3-4. First consideration for the above findings is infection , most probably hematogenous etiology as there does not appear to be a wound over this area. Findings called by myself to hospitalist provider 11/29/2024 at 4:15 p.m. DATA REPOSITORY:
[2024-11-29] MEDS: ceFAZolin 2 GM/50 ML BAG IVPB ×4 (00:22→23:43)
[2024-11-29] MEDS: Normal Saline Flush 10 ML SYR IVP ×4 (01:00→19:55)
[2024-11-29] MEDS: Enoxaparin 40 MG/0.4 ML SYR SC (10:23)
[2024-11-29] MEDS: Metoprolol 25 MG TAB PO ×2 (10:23→19:55)
[2024-11-29] MEDS: Folic Acid 1 MG TAB PO (10:23)
[2024-11-29] MEDS: Nicotine 21 MG/24 HR PATCH TD (10:23)
--- NOTE | 2024-11-29 10:53 | PT.INTREAT ---
PT Notes Visit Reasons: gram posit bacteremia,sept emboli,osteomyelyt,endo Date: 11/29/2023 Precautions: Fall. Standard. WBAT on B UE/LE. Subjective: Pt sitting onb the EOB, pt reports she is looking forward to walking, agreed to participating with therapy session Objective: on IV drip on RUE Pain: 2/10 in R shoulder and R knee Bed Mobility/Transfers: Supine to sit independent Sit to supine independent Sit to stand independent Stand to sit independent Bed to toilet independent Toilet to bed independent Bed to toilet independent Reclining chair to bed independent Gait: Supervision with 700 feet of level surface ambulation without assistive device with NO wheelchair needed. Ana improving. Balance: Static Sitting: Normal Dynamic Sitting: Normal Static Standing: Good Dynamic Standing: Good Assessment: Supervised ambulation in hallway by therapy/nursing staff due to patient's cardiac status to ensure safety. Therapeutic procedures 23784 10mins: Instruction in therapeutic exercises to develop strength and endurance, range of motion and flexibility. HEP instruction and review: Provided skilled instruction in proper exercise performance: Provided skilled manual cues to facilitate proper muscle recruitment and/or movement pattern: Access Code: [email or web address] URL: [email or web address] Date: 11/28/2024 Prepared by: Subha Espinoza Exercises - Seated Scapular Retraction - 1 x daily - 7 x weekly - 1 sets - 10 reps - 5 hold - Isometric Shoulder Flexion at Wall - 1 x daily - 7 x weekly - 1 sets - 10 reps - 5 hold - Standing Isometric Shoulder Internal Rotation at Doorway - 1 x daily - 7 x weekly - 1 sets - 10 reps - 5 hold - Isometric Shoulder Extension at Wall - 1 x daily - 7 x weekly - 1 sets - 10 reps - 5 hold - Isometric Shoulder Abduction at Wall - 1 x daily - 7 x weekly - 1 sets - 10 reps - 5 hold - Standing Isometric Shoulder Extension with Doorway - Arm Bent - 1 x daily - 7 x weekly - 1 sets - 10 reps - 5 hold - Seated Shoulder Flexion Towel Slide at Table Top - 1 x daily - 7 x weekly - 1 sets - 10 reps - 5 hold - Seated Shoulder Abduction Towel Slide at Table Top - 1 x daily - 7 x weekly - 1 sets - 10 reps - 5 hold - Shoulder Abduction Towel Slide at Table Top - 1 x daily - 7 x weekly - 1 sets - 10 reps - 5 hold - Standing Single Arm Shoulder Flexion Towel Slide at Table Top - 1 x daily - 7 x weekly - 1 sets - 10 reps - 5 hold - Seated Shoulder Flexion Towel Slide at Table Top Full Range of Motion - 1 x daily - 7 x weekly - 1 sets - 10 reps - 5 hold - Standing Heel Raise - 1 x daily - 7 x weekly - 3 sets - 10 reps - Mini Squat - 1 x daily - 7 x weekly - 1 sets - 10 reps - 5 hold Plan of Care/Treatment Plan: 1x/day, 7 days/week x 1 week. Plan of care has been reviewed with the AGRICULTURE LABORATORY TECHNICIAN providing the service under Physical Therapy direction. Initiate Physical Therapy intervention for pain management and gentle strengthening of R shoulder and R knee, stairs training, and balance training. Treatment focus: Pre-medicate for pain. Isometric exercises to R shoulder, PROM to R shoulder. Progressive strengthening to R quads. Balance training. May walk with nursing staff in hallway 1-2x day with wheelchair follow. Monitor vital signs during session. DISCHARGE RECOMMENDATIONS: [X] HH PT vs OP PT for continued post-op rehab of R shoulder and R knee, stairs training, and balance training TREATMENT CODE/TIME: 79660 x 10 minutes for 1 unit, 29780 x 15 minutes for 1 unit (10:45-11:00am)
[2024-11-29] MEDS: IRON SUCROSE COMPLEX 300 MG in Normal Saline 250 ML 167 MG IVPB (12:10)
--- NOTE | 2024-11-29 12:56 | PGE_ITS ---
Date of Service Date of service: 11/29/24 Time of Service: 12:56 Assessment and Plan Assessment and plan (1) MSSA bacteremia: Status: Acute Assessment and plan: F/u MRI spine and TTE today . (2) Infective endocarditis of tricuspid valve: Status: Acute Assessment and plan: Source of several embolic infections, infection has been controlled with therapy for above. Surgery for valve planned after discharge back at [facility]. (3) Opioid use disorder: Status: Chronic Assessment and plan: We discussed options. She would like to avoid opioid agonist therapy, though she has been getting oral hydromorphone prn pain while inpatient. We did discussed naltrexone, but with upcoming surgery she is not a good candidate for this. Discussed non-medical therapy, support. (4) Right heart failure: Assessment and plan: Associated with infected tricuspid valve. No signs of active CHF currently. Monitor. Echo done today - reults pending (5) Smoker: Status: Acute Assessment and plan: Continue nicotene TD. (6) Septic pulmonary embolism: Assessment and plan: Therapeutic anticoagulation not recommended upon transfer from [facility]. Treating infection as above. (7) DVT prophylaxis: Status: Acute Assessment and plan: LMWH (8) Septic discitis of lumbar region: Status: Acute Assessment and plan: A/w epidural abscess, septic facet arthritis. F/u L spine MRI w/wo recommended today - reults pending (9) Discharge planning issues: Status: Acute Assessment and plan: Will need plan to avoid relapse after completing antibiotics 12/01, planning valve replacement 12/15/24 at [facility]. Other issues: suture removal right shoulder 11/24 weekly labs done 11/22, CBC and Cr due 11/29 (10) Anemia: Status: Chronic Assessment and plan: a/w severe acute infection. Hgb 10.2 11/28 Subjective Subjective Patient reports: no new complaints, tolerating a regular diet, voiding w/o difficulty, bowel movement and afebrile; denies flatus, diarrhea, nausea, vomiting or shortness of breath Interval history since last seen: Tolerating medications Exam Narrative Exam Narrative: GEN: Alert and oriented x 4, pleasant and cooperative, gives linear history. No acute distress at rest. HEENT: Head atraumatic. Conjunctiva clear, no icterus. PEERL, EOMI. no rhinorrhea. MMM, OP benign. Neck is supple with no masses or lymphadenopathy, trachea midline LUNGS: CTAB with normal effort CV: RRR with 2/6 systolic murmur at apex to axilla. No gallops rubs. ABD: active bowel sounds, soft, nontender and nondistended. No masses. EXT: no cyanosis, clubbing, or edema MSK: No joint redness or heat. Right shoulder with diffusely limited ROM, mildly tender. Right knee also mild tenderness and effusion. NEURO: CN 2-12 grossly intact. Normal movement of 4 extremities. Normal speech and coordination. No tremor SKIN: No rashes or open wounds. PSYCH: normal mood and affect Objective Last Vital Signs Temp 36.8 C 11/28/24 08:03 Pulse 90 11/28/24 21:32 Resp 16 11/28/24 21:32 BP 116/74 11/28/24 21:32 Pulse Ox 97 11/28/24 21:32 Time Spent with Patient Time Spent with Patient: 25-34 minutes Time was spent: preparing to see the patient(eg.review tests), ordering medications,tests, procedures, referring, communicating with other health critical care registered nurse, indepentently interpreting results, counseling the patient and care coordination
[2024-11-29] MEDS: Gadoterate meglumine 20 ML SYRINGE 15 ML IVP (15:03)
[2024-11-29 19:52] VITALS: BP 113/73; PULSE 92; RESP 16; TEMP 36.6; O2SAT 98
[2024-11-30 06:10] LABS: Abs Immature Grans 0.03 10^3/uL (0.0-0.06); Absolute Basophil Count 0.05 10^3/uL (0.0-0.2); Absolute Eosinophil Count 0.17 10^3/uL (0.0-0.7); Absolute Monocyte Count 0.49 10^3/uL (0.1-0.8); Absolute Neutrophil Count 4.91 10^3/uL (1.2-6.7); Basophils % 0.7 %; Eosinophils % 2.4 %; HCT 33.2 % (36.0-46.0); HGB 10.5 g/dL (11.2-15.7); Immature Grans % 0.4 %; MCH 29.7 pg (27.0-33.0); MCHC 31.6 % (32.0-36.0); MCV 94 fL (80-95); MPV 9.7 fL (8.0-11.0); Monocytes % 6.9 %; Neutrophils % 68.6 %; Platelet Count 239 10^3/uL (130-400); RBC 3.54 10^6/uL (3.93-5.22); RDW 16.8 % (11.7-14.6); RDW-SD 57.5 fL; WBC 7.15 10^3/uL (4.4-10.8)
[2024-11-30 06:24] LABS: Anion Gap 3.6 mmol/L (3-11); BUN 12 mg/dL (7-18); CO2 30.4 mmol/L (21.0-32.0); CREATININE 0.8 mg/dL (0.55-1.02); Calcium 9.5 mg/dL (8.5-10.1); Chloride 106 mmol/L (98-107); Estimated GFR 99.71 (mL/min/1.73m2); Glucose 92 mg/dL (74-106); Magnesium 1.7 mg/dL (1.8-2.4); Potassium 4.4 mmol/L (3.5-5.1); Sodium 140 mmol/L (136-145)
[2024-11-30 06:32] LABS: C-Reactive Protein < 0.50 mg/dL (<or=0.5)
[2024-11-30 07:32] VITALS: BP 104/72; PULSE 94; RESP 14; TEMP 36.2; O2SAT 100
[2024-11-30] MEDS: Nicotine 21 MG/24 HR PATCH TD (08:23)
[2024-11-30] MEDS: Metoprolol 25 MG TAB PO ×2 (08:23→20:43)
[2024-11-30] MEDS: Normal Saline Flush 10 ML SYR IVP ×3 (08:23→20:44)
[2024-11-30] MEDS: Folic Acid 1 MG TAB PO (08:23)
[2024-11-30] MEDS: ceFAZolin 2 GM/50 ML BAG IVPB ×2 (08:24→15:50)
[2024-11-30] MEDS: Magnesium Chloride 64 MG TABCR PO (09:56)
[2024-11-30] MEDS: Enoxaparin 40 MG/0.4 ML SYR SC (09:56)
--- NOTE | 2024-11-30 13:46 | PTTR_ITS ---
PT Notes Visit Reasons: gram posit bacteremia,sept emboli,osteomyelyt,endo Inpatient Physical Therapy Treatment Note [facility] Date: 11/30/24 SUBJECTIVE: Cathy reports that her HEP is going ok. would like to go over them. She c/o left shld pain as well. States that she fell while at [facility] and reached out with her left arm to break her fall. She states that her arms just feel heavy. Pain with mvmt including reaching. Reports some frustration with this. OBJECTIVE: []? PAIN: B shld. VITALS: ?monitored by nsg BED MOBILITY/TRANSFERS? Supine-sit: I ? Sit-supine: I ? Sit-stand: I ? Stand-sit:I? Bed-Chair: I? Chair-bed: I Provided skilled cues and instruction on performance and technique throughout. GAIT? Assistive Device:none? Weight bearing: AT Assist: S? Distance:? 600' ? Deviation: slow with turning corners. Decreased heel strike. ? Therapeutic Exercises ([id number]): Direct one-on-one instruction in therapeutic exercises to develop strength, endurance, range of motion and flexibility. ? Exercises: PROM of B shld. CFM over anterior and posterior cuff on left. Instructed pendulum ex. She achieves approx 90 degrees of elevation, 30 ER post PROM on the right. Sit to stands x8 HR x10 LAQ x10 QS with SLR x7 ? Provided skilled instruction in proper exercise performance GAIT? Assistive Device:none? Weight bearing: AT Assist: S? Distance:? 600' ? Deviation: slow with turning corners. Decreased heel strike. ? ASSESSMENT: pain with AROM of left shld. TTP anterior and posterior cuff as well as t/o entire posterior cuff. This did improve after STM / CFM. Weakness noted t/o RTC. This did improve after STM / CFM. I applied cryo to B shld. Steady on her feet during ambulation. No LOB or SOB noted. Has a decent quad contraction as long as she is focusing on proper engagement. PLAN: continue to progress following POC TREATMENT CODE/TIME: [id number] DISCHARGE RECOMMENDATION: Home with outpt PT
--- NOTE | 2024-11-30 17:18 | CMPROGNOTE_ITS ---
Date of service: 11/30/24 Time of Service: 15:00 Care Management Progress Note Progress Note Text Progress Note Text: Cathy was notified today that her IV abx course should be extended through to 12/12. Cathy was visibly upset by this. She really wants to get home to her kids. If Cathy stays until the course is completed, her cardiac surgery can still proceed on 12/15. Cathy really had her heart set on going home tomorrow. She was hoping to be with her kids, attend her daughter's basketball games, and just be present until her planned surgery. The [employer] hospitalist spoke with [facility] who confirmed that Cathy can miss her 12/08 pre-op appt, and still have surgery on , as long as she stays at [facility] to complete her hospital course. CM sat with Cathy for a bit while she cried and got some of her feelings out. She is unsure what she is going to do. She may leave AMA. CM encouraged her to think this over. Not having the surgery could really shorten her life, and /or cause serious illness which would also greatly affect her time with her children. CM offered support and suggested Cathy speak with her mom and/or her sister to try to sort things out. Discharge Potential Discharge Needs: Surgical F/U Appt and Other (cardiac surgery/valve replacement scheduled for 12/15. Cathy MUST complete her antibiotic course in order to have this surgery.) Anticipated Barriers to Discharge: None Identified Patient/Family Education Needs: Review discharge instructions, discuss Ask Me Three Transportation: Private vehicle Plan: Initially it was believed Cathy's abx course would be complete on 12/01. Consult with ID stated course should last until 12/12. Anticipate that Cathy will remain in the swing bed to complete this course and have cardiac surgery on 12/15 as previously planned. She will transport home in a private vehicle and continue per her plan of care. CM will continue to follow. Social Determinants of Health Screening Social Determinants of Health last assessed: 11/30/24 Will the Patient Participate in the Screening?: Yes Do you worry about having a steady place to live?: no Problems where you live: no known problems In the past 12 months, have you had to go without electric, gas, oil or water in your home?: no Have you or anyone in your house had to go without enough food to eat?: no Has lack of transportation kept you from medical appointments or from doing things needed for daily living?: no Has anyone in your life made you feel unsafe or unsupported?: no How hard is it for you to pay for the very basics like food, housing, medical care, and heating? Would you say it is:: Not hard at all Do you want help finding or keeping work or a job?: I do not need or want help If for any reason you need help with day-to-day activities such as bathing, preparing meals, shopping, managing finances, etc., do you get the help you need?: I don?t need any help How often do you feel lonely or isolated from those around you?: Never Do you speak a language other than Estonian at home?: No Does the patient want assistance with any of the above?: No
[2024-11-30 19:17] LABS: Hepatitis A Antibody IgM Negative (Negative); Hepatitis B Core Antibody Negative (Negative); Hepatitis B surface Ag Negative (Negative); Hepatitis C Ab w Rflx HCV PCR Reactive (Negative)
[2024-11-30 19:48] VITALS: BP 111/7; PULSE 101; RESP 18; TEMP 36.9; O2SAT 98
[2024-12-01] MEDS: ceFAZolin 2 GM/50 ML BAG IVPB ×4 (00:27→23:48)
[2024-12-01] MEDS: Normal Saline Flush 10 ML SYR IVP ×5 (00:28→23:49)
[2024-12-01] MEDS: Metoprolol 25 MG TAB PO ×2 (08:46→21:00)
[2024-12-01] MEDS: Folic Acid 1 MG TAB PO (08:46)
[2024-12-01] MEDS: Nicotine 21 MG/24 HR PATCH TD (08:46)
[2024-12-01 09:44] VITALS: BP 106/67; PULSE 91; RESP 16; TEMP 36.7; O2SAT 98
[2024-12-01] MEDS: Enoxaparin 40 MG/0.4 ML SYR SC (10:12)
--- NOTE | 2024-12-01 10:19 | NUR.NOTE ---
Nursing Note: Pt tearful while talking on cell phone, stating that she is scared of her impending open heart surgery. She has not seen her kids since before [place] and is afraid she will never see then again if something happens. She wants to go home today to be with her kids. Encouraged pt that staff are advocating for her to go home.
[2024-12-01 15:00] LABS: HCV RNA Qualitative Undetected (Undetected)
--- NOTE | 2024-12-01 17:11 | PGE_ITS ---
Date of Service Date of service: 12/01/24 Time of Service: 17:11 Assessment and Plan Assessment and plan (1) MSSA bacteremia: Status: Acute Assessment and plan: Reviewed with [facility] Echo done mostly unchaged Ortho spine - no need to draw or inject - follow up with [facility] as planned Cardio thor states she will have preop day of surgery - patient made aware Discussed importance of patient staying in the hospital and rec'g tx or her procedure will be put on hold. Thanks - [place]. 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 Surgery for valve planned after discharge back at [facility]. 12/15/24 (3) Opioid use disorder: Status: Chronic Assessment and plan: We discussed options. She would like to avoid opioid agonist therapy, though she has been getting oral hydromorphone prn pain while inpatient. We did discussed naltrexone, but with upcoming surgery she is not a good candidate for this. Discussed non-medical therapy, support. (4) Right heart failure: Assessment and plan: Associated with infected tricuspid valve. No signs of active CHF currently. Monitor. Echo done today - unchanged from most recent (5) Smoker: Status: Acute Assessment and plan: Continue nicotene TD. (6) Septic pulmonary embolism: Assessment and plan: Therapeutic anticoagulation not recommended upon transfer from [facility]. Treating infection as above. (7) DVT prophylaxis: Status: Acute Assessment and plan: LMWH (8) Septic discitis of lumbar region: Status: Acute Assessment and plan: A/w epidural abscess, septic facet arthritis. F/u L spine MRI w/wo recommended today - reults pending Did not decompensate, SPO2 stable > 90% (9) Discharge planning issues: Status: Acute Assessment and plan: Will need plan to avoid relapse after completing antibiotics 12/01, planning valve replacement 12/15/24 at [facility]. Other issues: suture removal right shoulder 11/24 weekly labs done 11/22, CBC and Cr due 11/29 (10) Anemia: Status: Chronic Assessment and plan: a/w severe acute infection. Hgb 10.2 11/28 Subjective Subjective Interval history since last seen: Discussed with [facility] ID - continue abx until 12/12/2024 - 8 w from first neg BC Discussed with card thoracic surgery [facility] - patient can dc appt on 12/08 and have appt prior to tavr on 12/12 - the patient has been informed of this. Disccussed with ortho spine- states MRI is unchanged form previous. Long discussion regarding safety - discussed arjun, patient willing to stay until 12/12 with arjun ability for children sports attendance. Gem Setter and MD agree with plan. Objective Last Vital Signs Temp 36.7 C 12/01/24 09:44 Pulse 91 H 12/01/24 09:44 Resp 16 12/01/24 09:44 BP 106/67 12/01/24 09:44 Pulse Ox 98 12/01/24 09:44 Laboratory Results - last 24 hr 11/30/24 05:50 Hepatitis A IgM Ab Negative Hep Bs Antigen Negative Hep B Core Total Ab Negative Hepatitis C Antibody Reactive A HCV RNA Qual (PCR) Undetected Hepatitis C RNA Quant Not Applicable Time Spent with Patient Time Spent with Patient: 25-34 minutes Time was spent: preparing to see the patient(eg.review tests), ordering medications,tests, procedures, referring, communicating with other health day care teacher, indepentently interpreting results, counseling the patient and care coordination
--- NOTE | 2024-12-01 18:05 | CMPROGNOTE_ITS ---
Date of service: 12/01/24 Time of Service: 11:30 Care Management Progress Note Progress Note Text Progress Note Text: Cathy was still upset over yesterday's events when CM met with her today. Cathy was notified that she is able to leave the hospital for outings, like going to her daughter's basketball game, as long as she had transportation to and from the hospital. At the time, Cathy was too upset to let this settle. She called her mom, the game is not until tomorrow, and Cathy decided to stay for her treatment. She is planning to attend the game tomorrow, and to stay through 12/12 when her abx course will be officially ended. Discharge Potential Discharge Needs: PCP F/U Appt and Other (valve replacement scheduled for 12/15 at [facility]) Anticipated Barriers to Discharge: None Identified Patient/Family Education Needs: Review discharge instructions, discuss Ask Me Three Transportation: Private vehicle Plan: Anticipate that Cathy will remain in the swing bed to complete this course and have cardiac surgery on 12/15 as previously planned. She will transport home in a private vehicle and continue per her plan of care. CM will continue to follow. Social Determinants of Health Screening Social Determinants of Health last assessed: 12/01/24 Will the Patient Participate in the Screening?: Yes Do you worry about having a steady place to live?: no Problems where you live: no known problems In the past 12 months, have you had to go without electric, gas, oil or water in your home?: no Have you or anyone in your house had to go without enough food to eat?: no Has lack of transportation kept you from medical appointments or from doing things needed for daily living?: no Has anyone in your life made you feel unsafe or unsupported?: no How hard is it for you to pay for the very basics like food, housing, medical care, and heating? Would you say it is:: Not hard at all Do you want help finding or keeping work or a job?: I do not need or want help If for any reason you need help with day-to-day activities such as bathing, preparing meals, shopping, managing finances, etc., do you get the help you need?: I don?t need any help How often do you feel lonely or isolated from those around you?: Never Do you speak a language other than Belgian at home?: No Does the patient want assistance with any of the above?: No
[2024-12-01 18:58] VITALS: BP 116/68; PULSE 113; RESP 16; TEMP 37.2; O2SAT 98
[2024-12-02] MEDS: Metoprolol 25 MG TAB PO ×2 (07:44→20:10)
[2024-12-02] MEDS: Folic Acid 1 MG TAB PO (07:44)
[2024-12-02] MEDS: ceFAZolin 2 GM/50 ML BAG IVPB ×3 (07:44→23:48)
[2024-12-02] MEDS: Nicotine 21 MG/24 HR PATCH TD (07:45)
[2024-12-02] MEDS: Normal Saline Flush 10 ML SYR IVP ×5 (07:45→23:49)
[2024-12-02 08:18] VITALS: BP 103/62; PULSE 95; RESP 18; TEMP 36.9; O2SAT 100
--- NOTE | 2024-12-02 08:27 | PT.INPN ---
PT Notes Visit Reasons: gram posit bacteremia,sept emboli,osteomyelyt,endo Physical Therapy Inpatient Progress Note Date: 12/02/2024 Dates of Service: 11/25/2024 through 12/02/2024 Precautions: Fall. Standard. WBAT on B UE/LE. Subjective: Frustrated about not being able to come home yesterday as originally planned. Understands the importance of staying as mobile as she is able in preparation for her upcoming surgery. Wants to know when her stitches on the R knee could be removed. Nurse Diya made aware. Objective: General Observation: Resting in bed. Mental Status: Alert and oriented as to person, place, time, and purpose. Able to pay attention, focus, and respond appropriately. Pain: 3-4/10 in R shoulder and R knee Vital Signs: Closely monitored by nursing staff ROM: Right Upper Extremity: Shoulder flexion lnow about 30 degrees actively with moderate pain at end of range. Shoulder abduction now about 20 degrees with pain at end of range with moderate pain at end of range. Elbow flexion WFL. Wrist flexion WFL. Functional opening and closing of hand WFL. Right Lower Extremity: Hip flexion WFL. Hip abduction WFL. Knee flexion 0 degrees to 100 degrees. Ankle dorsiflexion WFL. Ankle plantarflexion WFL. Strength: Right Upper Extremity: Shoulder flexors 2-/5. Shoulder abductors 2-/5. Elbow flexors 3/5. Elbow extensors 3/5. Oracle Engineer strong. Right Lower Extremity: Hip flexors 4-/5. Hip abductors 4-/5. Knee flexors 3-/5. Knee extensors 3-/5. Ankle dorsiflexors 4/5. Ankle plantarflexors 4/5. Bed Mobility/Transfers: Supine to sit independent Sit to supine independent Sit to stand independent Stand to sit independent Bed to toilet independent Toilet to bed independent Bed to toilet independent Reclining chair to bed independent Gait: Supervision with 600 feet of level surface ambulation without assistive device with wheelchair follow for safety. Ana decreased. Seated rest needed to minimize fatigue. HR 104 bpm, SAO2 97% on RA, 106/74 mmHg. THERA EX: Worked on proprioceptive neuromuscular facilitation on the R shoulder to increase shoulder flexion/extension and abduction/adduction as well as scapular retraction/protraction adn shoulder elevetion/depression x 8 minutes with AAROM incorporated that allowed up to 30 degrees into shoulder flexion and 20 degrees into abduction. Balance: Static Sitting: Normal Dynamic Sitting: Normal Static Standing: Good Dynamic Standing: Good Assessment: Anxiety over not being able to go home as originally plaanned on 12/01/2024 per recommendation of palliative nurse who said for patient to stay until scheduled surgery on 12/15/2024 [place] [facility]. Improving AROM on R shoulder and R knee. Patient presents with clinical signs and symptoms consistent with current/admitting diagnoses that have resulted to mobility limitations, gait instability, generalized weakness, and overall ADL decline as demonstrated by the following impairment level findings: 1. Decreased strength to R shoulder and R knee major muscle groups 2. Impaired standing balance 3. Impaired activity tolerance 4. Limitation of joint range of motion in R shoulder and R knee Impairments are contributing to the following functional limitations: 1. Increased completion time for mobility ADL performance 2. Increased risk for falls Patient is assessed as a 86030 low complexity based on the following: History: 34-year-old female with past medical history as indicated above Examination: Demonstrable impairment in strength, balance, and mobility level with underlying impairments and functional limitations as exhibited above Presentation: Evolving Decision Makin moderate complexity Goals: Goals X1 week 1. Independent gait on level surface with use of no device for at least 600 feet without report of pain nor dyspnea, NOT MET CONTINUE 2. Independent stair negotiation while holding onto B rails for at least 5 steps without report of pain nor dyspnea, NOT MET CONTINUE 3. Independent with home exercise program NOT MET CONTINUE 4. Good static and dynamic standing balance/tolerance NOT MET CONTINUE Plan of Care/Treatment Plan: 1x/day, 5 days/week Mondays through Fridays x 2 weeks. Plan of care has been reviewed with the DIAPER MACHINE TENDER providing the service under Physical Therapy direction. Initiate Physical Therapy intervention for pain management and gentle strengthening of R shoulder and R knee, stairs training, and balance training. Treatment focus: Pre-medicate for pain. Isometric exercises to R shoulder, PROM to R shoulder. Progressive strengthening to R quads. Balance training. May walk with nursing staff in hallway 1-2x day with wheelchair follow. Monitor vital signs during session. DISCHARGE RECOMMENDATIONS: [] Home with no services [] [] Home with services [specify] [] Home with outpatient PT [] [] SNF for continued rehabilitation [] [] [employer] [facility] [] [] SNF versus LTC based on ability to participate and progress [] [X] HH PT vs OP PT for continued post-op rehab of R shoulder and R knee, stairs training, and balance training TREATMENT CODE/TIME: 38275 x 17 minutes for 1 unit, 13936 x 15 minutes for 1 unit (8:27-8:59).
[2024-12-02] MEDS: Enoxaparin 40 MG/0.4 ML SYR SC (09:45)
[2024-12-02 20:21] VITALS: BP 105/63; PULSE 112; RESP 16; TEMP 37; O2SAT 100
[2024-12-03] MEDS: Folic Acid 1 MG TAB PO (08:19)
[2024-12-03] MEDS: Nicotine 21 MG/24 HR PATCH TD (08:19)
[2024-12-03] MEDS: Normal Saline Flush 10 ML SYR IVP ×5 (08:20→23:49)
[2024-12-03] MEDS: ceFAZolin 2 GM/50 ML BAG IVPB ×3 (08:21→23:15)
[2024-12-03 08:24] VITALS: BP 105/69; PULSE 94; RESP 16; TEMP 36.4; O2SAT 94
[2024-12-03] MEDS: Metoprolol 25 MG TAB PO ×2 (08:26→23:14)
[2024-12-03] MEDS: Enoxaparin 40 MG/0.4 ML SYR SC (10:20)
--- NOTE | 2024-12-03 13:23 | PDOC.CMPRO ---
Date of service: 12/03/24 Time of Service: 11:45 Care Management Progress Note Progress Note Text Progress Note Text: Cathy was sitting up on the side of the bed when CM met with her today. She was waiting for her RN to come and take out the sutures in her knee. Cathy had a furlough last night, she attended her daughter's basketball game with her oldest son and her sister. She stated that she had a good time, the team won, but it was a little scary being out. CM encouraged Cathy to have more furloughs to get used to being outside in her new world. She is thinking about maybe having a meal with her family this weekend. Discharge Potential Discharge Needs: PCP F/U Appt and Other (valve replacement scheduled at [facility] on 12/15/24) Anticipated Barriers to Discharge: None Identified Patient/Family Education Needs: Review discharge instructions, discuss Ask Me Three Transportation: Private vehicle Plan: Anticipate that Cathy will remain in the swing bed to complete her antibiotic course that is scheduled to be completed on 12/12, and have cardiac surgery on 12/15 as previously planned. She will transport home in a private vehicle and continue per her plan of care. CM will continue to follow. Social Determinants of Health Screening Social Determinants of Health last assessed: 12/03/24 Will the Patient Participate in the Screening?: Yes Do you worry about having a steady place to live?: no Problems where you live: no known problems In the past 12 months, have you had to go without electric, gas, oil or water in your home?: no Have you or anyone in your house had to go without enough food to eat?: no Has lack of transportation kept you from medical appointments or from doing things needed for daily living?: no Has anyone in your life made you feel unsafe or unsupported?: no How hard is it for you to pay for the very basics like food, housing, medical care, and heating? Would you say it is:: Not hard at all Do you want help finding or keeping work or a job?: I do not need or want help If for any reason you need help with day-to-day activities such as bathing, preparing meals, shopping, managing finances, etc., do you get the help you need?: I don?t need any help How often do you feel lonely or isolated from those around you?: Never Do you speak a language other than Tajik at home?: No Does the patient want assistance with any of the above?: No
--- NOTE | 2024-12-03 13:48 | PT.INTREAT ---
PT Notes Visit Reasons: gram posit bacteremia,sept emboli,osteomyelyt,endo Date: 12/03/2024 Precautions: Fall. Standard. WBAT on B UE/LE. Subjective: pt expressed frustration about not being able to go home, pt was happy about the fact that she was given a day pass to go and watch her daughter play basketball at the [facility] [employer]. Objective: General Observation: Resting in bed. Mental Status: Alert and oriented as to person, place, time, and purpose. Able to pay attention, focus, and respond appropriately. Pain: 3-4/10 in R shoulder and R knee Vital Signs: Closely monitored by nursing staff Bed Mobility/Transfers: Supine to sit independent Sit to supine independent Sit to stand independent Stand to sit independent Bed to toilet independent Toilet to bed independent Bed to toilet independent Reclining chair to bed independent Gait: Supervision with 600 feet of level surface ambulation without assistive device. pt able to maneuver around hallway obstacles and foot traffic without LOB, pt cue for increased armswing to improve ROM as well as mange pain while gait training. THERA EX: Worked on proprioceptive neuromuscular facilitation on the R shoulder to increase shoulder flexion/extension and abduction/adduction as well as scapular retraction/protraction and shoulder elevetion/depression with AAROM incorporated that allowed up to 40 degrees into shoulder flexion and 30 degrees into abduction. Assessment: Pt reports the shoulder feels much better with increasd swing during gait training, pt HEP reviewed with pt able to peform together with therapist. Plan of Care/Treatment Plan: 1x/day, 5 days/week Mondays through Fridays x 2 weeks. Treatment focus: Pre-medicate for pain. Isometric exercises to R shoulder, PROM to R shoulder. Progressive strengthening to R quads. Balance training. May walk with nursing staff in hallway 1-2x day with wheelchair follow. Monitor vital signs during session. DISCHARGE RECOMMENDATIONS: HH PT vs OP PT for continued post-op rehab of R shoulder and R knee, stairs training, and balance training TREATMENT CODE/TIME: 10098 x 15 minutes for 1 unit, 40117 x 10 minutes for 1 unit (1:30-1:55pm).
--- NOTE | 2024-12-03 14:39 | PHA.REVIEW2 ---
Pharmacy Admission Review Admission Clinical Review Admission Pharmacy Review: Septic discitis of lumbar region (Acute) MSSA bacteremia (Acute) Discharge planning issues (Acute) Smoker (Acute) DVT prophylaxis (Acute) Infective endocarditis of tricuspid valve (Acute) Penicillins Allergy (Severe, Verified 10/17/24 15:05) Anaphylaxsis Resuscitation Status Full Code Height 5 ft 9 in Weight 72.8 kg Pharmacy Admission Review Renal Dosing Renal Dosing: BUN 12 mg/dL (7-18) 11/30/24 05:50 Creatinine 0.8 mg/dL (0.55-1.02) 11/30/24 05:50 Medications needing adjustments: Reviewed (CrCl 114.75 mL/min) List of meds needing interventions: Current medications are okay Anticoagulation Anticoagulation: Hgb 10.5 g/dL (11.2-15.7) L 11/30/24 05:50 Hct 33.2 % (36.0-46.0) L 11/30/24 05:50 Plt Count 239 10^3/uL (130-400) 11/30/24 05:50 Creatinine 0.8 mg/dL (0.55-1.02) 11/30/24 05:50 DVT Prophylaxis: Reviewed Medications: Enoxaparin (40mg daily) Relevant Labs Relevant Labs: Sodium 140 mmol/L (136-145) 11/30/24 05:50 Potassium 4.4 mmol/L (3.5-5.1) 11/30/24 05:50 Chloride 106 mmol/L (98-107) 11/30/24 05:50 Magnesium 1.7 mg/dL (1.8-2.4) L 11/30/24 05:50 C-Reactive Protein < 0.50 mg/dL (<or=0.5) 11/30/24 05:50 Electrolytes, C-Reactive P, ESR: Reviewed (no new labs for today) Cardiac Review BP, HR, EF%: Reviewed (BP WNL, HR 94) List meds needing interventions: Has order for metoprolol 25mg BID QTc Review QTc: Reviewed (533 from 10/17/34 - most recent EKG on file) IV to PO Switch IV Medications: Reviewed (cefazolin) Home Meds Home Med List reviewed: Reviewed Relevent Home Meds Not ordered & why?: No known home meds Current Meds Current Medication Order Review: Reviewed Pharmacy Antibiotic Review Pharmacy Antibiotic Activity: Reviewed, no change Comments: Patient is on cefazolin for osteomyelitis and bacteremia, being treated through 12/12/24 per morning meeting.
[2024-12-04 08:54] VITALS: BP 110/71; PULSE 104; RESP 16; TEMP 36.6; O2SAT 98
[2024-12-04] MEDS: ceFAZolin 2 GM/50 ML BAG IVPB ×2 (08:56→16:27)
[2024-12-04] MEDS: Normal Saline Flush 10 ML SYR IVP ×2 (08:56→16:27)
[2024-12-04] MEDS: Folic Acid 1 MG TAB PO (08:57)
[2024-12-04] MEDS: Metoprolol 25 MG TAB PO ×2 (08:57→21:47)
[2024-12-04] MEDS: Nicotine 21 MG/24 HR PATCH TD (08:57)
[2024-12-04] MEDS: Enoxaparin 40 MG/0.4 ML SYR SC (12:05)
[2024-12-05 00:03] VITALS: BP 105/52; PULSE 92; RESP 16; TEMP 37; O2SAT 99
[2024-12-05] MEDS: Normal Saline Flush 10 ML SYR IVP ×6 (00:05→23:34)
[2024-12-05] MEDS: ceFAZolin 2 GM/50 ML BAG IVPB ×4 (00:06→23:33)
[2024-12-05] MEDS: Nicotine 21 MG/24 HR PATCH TD (08:17)
[2024-12-05] MEDS: Metoprolol 25 MG TAB PO ×2 (08:18→21:27)
[2024-12-05] MEDS: Folic Acid 1 MG TAB PO (08:18)
[2024-12-05 08:19] VITALS: BP 105/74; PULSE 88; RESP 16; TEMP 36.6; O2SAT 98
[2024-12-05] MEDS: Ergocalciferol 50000 UNITS CAP PO (10:48)
[2024-12-05] MEDS: Enoxaparin 40 MG/0.4 ML SYR SC (12:02)
[2024-12-05 21:26] VITALS: BP 123/77; PULSE 98
[2024-12-06] MEDS: ceFAZolin 2 GM/50 ML BAG IVPB ×2 (08:52→16:25)
[2024-12-06] MEDS: Normal Saline Flush 10 ML SYR IVP ×3 (08:52→20:14)
[2024-12-06] MEDS: Nicotine 21 MG/24 HR PATCH TD (08:52)
[2024-12-06] MEDS: Metoprolol 25 MG TAB PO ×2 (08:53→20:14)
[2024-12-06] MEDS: Folic Acid 1 MG TAB PO (08:53)
[2024-12-06 08:55] VITALS: BP 108/77; PULSE 107; RESP 16; TEMP 36.6; O2SAT 98
[2024-12-06] MEDS: Enoxaparin 40 MG/0.4 ML SYR SC (12:49)
--- NOTE | 2024-12-06 14:11 | CMPROGNOTE_ITS ---
Care Management Progress Note Progress Note Text Progress Note Text: Cathy was sitting up in the bed watching TV and playing on her phone when CM met with her today. She was very pleasant. Cathy filled out her Advanced Directives. She stated that she wanted to have them in place prior to her surgery, just to be sure. CM secured another witness, we watched her sign, and then signed as witnesses. Copies were made for each of her agents, and for her to give to [facility] when she goes for her surgery. Cathy was given the original. The AD was faxed successfully to the registry. Discharge Potential Discharge Needs: Other (valve replacement scheduled at [facility] on 12/15/24) Anticipated Barriers to Discharge: None Identified Patient/Family Education Needs: Review discharge instructions, discuss Ask Me Three Transportation: Private vehicle Plan: Anticipate that Cathy will remain in the swing bed to complete her antibiotic course that is scheduled to be completed on 12/12, and have cardiac surgery on 12/15 as previously planned. She will transport home in a private vehicle and continue per her plan of care. CM will continue to follow. Social Determinants of Health Screening Social Determinants of Health last assessed: 12/06/24 Will the Patient Participate in the Screening?: Yes Do you worry about having a steady place to live?: no Problems where you live: no known problems In the past 12 months, have you had to go without electric, gas, oil or water in your home?: no Have you or anyone in your house had to go without enough food to eat?: no Has lack of transportation kept you from medical appointments or from doing things needed for daily living?: no Has anyone in your life made you feel unsafe or unsupported?: no How hard is it for you to pay for the very basics like food, housing, medical care, and heating? Would you say it is:: Not hard at all Do you want help finding or keeping work or a job?: I do not need or want help If for any reason you need help with day-to-day activities such as bathing, preparing meals, shopping, managing finances, etc., do you get the help you need?: I don?t need any help How often do you feel lonely or isolated from those around you?: Never Do you speak a language other than Haitian at home?: No Does the patient want assistance with any of the above?: No
[2024-12-06 20:13] VITALS: BP 116/80; PULSE 106; RESP 15; TEMP 36.7; O2SAT 99
[2024-12-07] MEDS: ceFAZolin 2 GM/50 ML BAG IVPB ×4 (00:16→23:58)
[2024-12-07] MEDS: Normal Saline Flush 10 ML SYR IVP ×7 (00:17→23:59)
[2024-12-07 07:34] VITALS: BP 101/69; PULSE 92; RESP 14; TEMP 36.2; O2SAT 99
[2024-12-07] MEDS: Metoprolol 25 MG TAB PO ×2 (08:17→20:20)
[2024-12-07] MEDS: Folic Acid 1 MG TAB PO (08:17)
[2024-12-07] MEDS: Nicotine 21 MG/24 HR PATCH TD (09:48)
--- NOTE | 2024-12-07 10:14 | PGE_ITS ---
Date of Service Date of service: 12/07/24 Time of Service: 13:00 Assessment and Plan Assessment and plan (1) MSSA bacteremia: Status: Acute Assessment and plan: Spoke to IRAIS Davison from [facility]. Plan made to complete surgery this week most likely on Friday with transfer for to [facility] on either Friday or . Patient is agreeable Echo done?no need to repeat, it was mostly unchanged No repeat spine MRI needed either as per previous consultation with Ortho spine -there was no need to draw or inject (2) Infective endocarditis of tricuspid valve: Status: Acute Assessment and plan: From MSSA bacteremia seeding causing several embolic infections, infection has been controlled with therapy for above. Surgery for valve planned this week on Friday at [facility]. (3) Opioid use disorder: Status: Chronic Assessment and plan: As mentioned in prior notes, starting naltrexone as the patient can get surgery is not an option. The patient would like to avoid opioid agonist therapy, oral hydromorphone prn pain while inpatient, now only on as needed acetaminophen. Might need outpatient follow-up for support with non-medical therapy (4) Right heart failure: Assessment and plan: No decompensation in the setting of infected tricuspid valve. Echo done last week was unchanged from unchanged from prior. No plan to repeat echo (5) Smoker: Status: Acute Assessment and plan: Continue nicotine Therapy (6) Septic pulmonary embolism: Assessment and plan: No on thigh coagulation recommended when the patient was transferred from [facility]. Infection treated as per point 1 (7) DVT prophylaxis: Status: Acute Assessment and plan: Continue LMWH (8) Septic discitis of lumbar region: Status: Acute Assessment and plan: Returned from [facility] with A/w epidural abscess, septic facet arthritis. F/u L spine MRI w/wo recommended completed on 11/29/2024 with the following findings: abnormal enhancement within and around the right facet joint at L4-5 level, also involving the adjacent right ligamentum flavum and with some some enhancement also seen with in the right-side of the epidural space at this level. There is also abnormal enhancement within the inter spinous ligament between the spinous process is of L4 and L5. Also abnormal enhancement in the inter spinous space 1 level above this at L3-4. First consideration for the above findings is infection, most probably hematogenous etiology as there does not appear to be a wound over this area. Upon discussion with Evelina Davison APRN today there was no need to repeat imaging prior to planned surgical intervention this week when she spoke to her colleagues. (9) Anemia: Status: Chronic Assessment and plan: a/w severe acute infection. Hgb 10.2 11/28 last week now resolved with H&H at 12.[address] Thompson (10) Discharge planning issues: Status: Acute Assessment and plan: Plan for transfer to [facility] on Friday or for valve replacement on Friday Transfer center to call with bed assignment within 24 for 48 hours Other issues: suture removal right shoulder 11/24 weekly labs done 12/07/2024?result were unremarkable Subjective Subjective Patient reports: no new complaints, tolerating liquids well, tolerating a regular diet, voiding w/o difficulty, bowel movement, afebrile and other (Discussed the possibility of surgery [place] [facility] this [place] patient expects anxiety but agrees that surgery should be done at the earliest); denies diarrhea, blood in stool, nausea, vomiting or shortness of breath Exam Narrative Exam Narrative: Constitutional The patient is without acute distress HENMT:Facial structures with normal appearance Neck: Normal ROM, no meningeal signs Neuro:alert and oriented x 4. No neurological focal deficit Resp: Unlabored breathing, clear lung bilaterally Cardio: regular rhythm, S1, S2, + murmur right second intercostal, positive pulses to all 4 extremities GI: Abdomen is not distended, soft and non tender, bowel sounds are present : Negative Costovertebral angle tenderness, no bladder distension Back/spine/Pelvis: No back tenderness, normal alignment Integumentary: No skin lesions or rash Extremities: strength 5/5 to bilateral lower and upper extremities Psych: RASS 0, congruent mood and normal anxious affect affect. Objective Last Vital Signs Temp 36.2 C L 12/07/24 07:34 Pulse 92 H 12/07/24 07:34 Resp 14 12/07/24 07:34 BP 101/69 12/07/24 07:34 Pulse Ox 99 12/07/24 07:34 Time Spent with Patient Time Spent with Patient: >50 minutes Time was spent: preparing to see the patient(eg.review tests), obtaining and/or reviewing separately otained hiistory, ordering medications,tests, procedures, referring, communicating with other health direct care professional, indepentently interpreting results, counseling the patient and care coordination
[2024-12-07 12:02] LABS: Abs Immature Grans 0.04 10^3/uL (0.0-0.06); Absolute Basophil Count 0.05 10^3/uL (0.0-0.2); Absolute Lymphocyte Count 1.91 10^3/uL (1.2-3.4); Absolute Monocyte Count 0.55 10^3/uL (0.1-0.8); Absolute Neutrophil Count 4.61 10^3/uL (1.2-6.7); Basophils % 0.7 %; Eosinophils % 1.4 %; HCT 39.5 % (36.0-46.0); HGB 12.3 g/dL (11.2-15.7); Immature Grans % 0.6 %; Lymphocytes % 26.3 %; MCH 29.1 pg (27.0-33.0); MCHC 31.1 % (32.0-36.0); MCV 94 fL (80-95); MPV 9.7 fL (8.0-11.0); Monocytes % 7.6 %; Neutrophils % 63.4 %; Platelet Count 198 10^3/uL (130-400); RBC 4.22 10^6/uL (3.93-5.22); RDW 15.3 % (11.7-14.6); RDW-SD 53.1 fL; WBC 7.26 10^3/uL (4.4-10.8)
[2024-12-07 12:32] LABS: Anion Gap 9.2 mmol/L (3-11); BUN 13 mg/dL (7-18); CO2 26.8 mmol/L (21.0-32.0); CREATININE 0.7 mg/dL (0.55-1.02); Calcium 9.6 mg/dL (8.5-10.1); Chloride 105 mmol/L (98-107); Estimated GFR 117.04 (mL/min/1.73m2); Glucose 112 mg/dL (74-106); Potassium 4.1 mmol/L (3.5-5.1); Sodium 141 mmol/L (136-145)
[2024-12-07] MEDS: Enoxaparin 40 MG/0.4 ML SYR SC (12:43)
--- NOTE | 2024-12-07 14:44 | PT.INTREAT ---
PT Notes Visit Reasons: gram posit bacteremia,sept emboli,osteomyelyt,endo Physical Therapy Inpatient Treatment Note Date: 12/07/2024 Precautions: Fall. Standard. WBAT on B UE/LE. Subjective: Sad and ou about upcoming surgery. Objective: General Observation: Resting in bed. Mental Status: Alert and oriented as to person, place, time, and purpose. Able to pay attention, focus, and respond appropriately. Pain: 3-4/10 in R shoulder and R knee Vital Signs: Closely monitored by nursing staff Bed Mobility/Transfers: Supine to sit independent Sit to supine independent Sit to stand independent Stand to sit independent Bed to toilet independent Toilet to bed independent Bed to toilet independent Reclining chair to bed independent Gait: Supervision with 600 feet of level surface ambulation without assistive device with wheelchair follow for safety. Ana decreased. Seated rest needed to minimize fatigue. THERA EX: ABRAM EX: Worked on table top exercises to increase shoulder AROM - Isometric Shoulder Extension at Wall - 1 x daily - 7 x weekly - 1 sets - 10 reps - 5 hold - Isometric Shoulder Abduction at Wall - 1 x daily - 7 x weekly - 1 sets - 10 reps - 5 hold - Standing Isometric Shoulder Extension with Doorway - Arm Bent - 1 x daily - 7 x weekly - 1 sets - 10 reps - 5 hold - Seated Shoulder Flexion Towel Slide at Table Top - 1 x daily - 7 x weekly - 1 sets - 10 reps - 5 hold - Seated Shoulder Abduction Towel Slide at Table Top - 1 x daily - 7 x weekly - 1 sets - 10 reps - 5 hold - Shoulder Abduction Towel Slide at Table Top - 1 x daily - 7 x weekly - 1 sets - 10 reps - 5 hold - Standing Single Arm Shoulder Flexion Towel Slide at Table Top - 1 x daily - 7 x weekly - 1 sets - 10 reps - 5 hold - Seated Shoulder Flexion Towel Slide at Table Top Full Range of Motion - 1 x daily - 7 x weekly - 1 sets - 10 reps - 5 hold Balance: Static Sitting: Normal Dynamic Sitting: Normal Static Standing: Good Dynamic Standing: Good Assessment: Signs of depression increasing. Improving AROM on R shoulder and R knee. Goals: Goals X1 week 1. Independent gait on level surface with use of no device for at least 600 feet without report of pain nor dyspnea, NOT MET CONTINUE 2. Independent stair negotiation while holding onto B rails for at least 5 steps without report of pain nor dyspnea, NOT MET CONTINUE 3. Independent with home exercise program NOT MET CONTINUE 4. Good static and dynamic standing balance/tolerance NOT MET CONTINUE Plan of Care/Treatment Plan: 1x/day, 5 days/week Mondays through Fridays x 2 weeks. Plan of care has been reviewed with the CLINICAL QUALITY ANALYST providing the service under Physical Therapy direction. Initiate Physical Therapy intervention for pain management and gentle strengthening of R shoulder and R knee, stairs training, and balance training. DISCHARGE RECOMMENDATIONS: [] Home with no services [] [] Home with services [specify] [] Home with outpatient PT [] [] SNF for continued rehabilitation [] [] [facility] [] [] SNF versus LTC based on ability to participate and progress [] [X] HH PT vs OP PT for continued post-op rehab of R shoulder and R knee, stairs training, and balance training TREATMENT CODE/TIME: 38310 x 20 minutes for 1 unit (14:44-15:04).
[2024-12-07 19:58] LABS: Magnesium 1.8 mg/dL (1.8-2.4)
[2024-12-08 07:48] VITALS: BP 124/84; PULSE 76; RESP 18; TEMP 36.8; O2SAT 95
[2024-12-08] MEDS: Nicotine 21 MG/24 HR PATCH TD (07:49)
[2024-12-08] MEDS: Metoprolol 25 MG TAB PO ×2 (07:50→20:20)
[2024-12-08] MEDS: Folic Acid 1 MG TAB PO (07:50)
[2024-12-08] MEDS: ceFAZolin 2 GM/50 ML BAG IVPB ×3 (07:50→22:02)
[2024-12-08] MEDS: Normal Saline Flush 10 ML SYR IVP ×5 (07:51→22:03)
[2024-12-08] MEDS: Enoxaparin 40 MG/0.4 ML SYR SC (11:45)
--- NOTE | 2024-12-08 13:14 | PT.INTREAT ---
PT Notes Visit Reasons: gram posit bacteremia,sept emboli,osteomyelyt,endo Date: 12/08/2024 PRECAUTIONS: Fall. Standard. WBAT on B UE/LE. SUBJECTIVE: Pt reports feeling depressed with her current schedule, pt expressed desire to be home at least a day to be with children prior to her heart surgery. OBJECTIVE: ? PAIN: 3-10 in R shoulder and R knee VITALS: closely monitored by nursing Therapeutic Activities 25546: Direct one-on-one instruction in dynamic activities to improve functional performance. ?? BED MOBILITY/TRANSFERS? Rolling L/R: independent Supine-sit: ?independent? Sit-supine: ? independent ? Sit-stand: ? independent? Stand-sit: ?? independent? Bed-Chair:? ?independent ? Chair-bed: independent Provided skilled cues and instruction on performance and technique throughout. Gait Training 23249: Direct one-on-one instruction and skilled instruction in: Movement sequencing Turning and movement with proper form Provided instruction in gait pattern Patient education regarding pacing and breathing techniques to maximize activity tolerance? GAIT? Assistive Device: ?None ? Weight bearing: FWB Assist: ?independent ? Distance:??600' ? Deviation: ?slightly antalgic RLE ? STAIRS:? 2 flights of stairs 12steps x2 up and down, step over step unilateral handrail supervision ? Therapeutic Exercises 93367: Direct one-on-one instruction in therapeutic exercises to develop strength, endurance, range of motion and flexibility. Exercises: Standing forearm wall slides with AAROM form LUE [id number] Standing wall slides elbow extended with AAROM from LUE [id number] Isometric shoulder flexion 5x 10secs hold Isometric shoulder extension 5x 10secs hold Isometric shoulder abduction 5x 10secs hold Isometric shoulder external rotation [id number] hold Isometric shoulder internal rotation [id number] hold Provided skilled instruction in proper exercise performance Provided skilled manual cues to facilitate proper muscle recruitment and/or form: ASSESSMENT:?pt tolerated activity well, pt instructed to work within limitation of pain. Plan of Care/Treatment Plan: 1x/day, 5 days/week Mondays through Fridays x 2 weeks. Continue Physical Therapy intervention for pain management and gentle strengthening of R shoulder and R knee, stairs training, and balance training. TREATMENT CODE/TIME: [id number] 25mins (12:52-1:17pm)
[2024-12-08 19:33] VITALS: BP 109/78; PULSE 108; RESP 18; TEMP 36.8; O2SAT 99
[2024-12-09] MEDS: ceFAZolin 2 GM/50 ML BAG IVPB ×3 (05:35→19:38)
[2024-12-09] MEDS: Normal Saline Flush 10 ML SYR IVP ×5 (05:35→20:12)
[2024-12-09 07:28] VITALS: BP 110/72; PULSE 86; RESP 16; TEMP 36.6; O2SAT 100
[2024-12-09] MEDS: Folic Acid 1 MG TAB PO (08:08)
[2024-12-09] MEDS: Metoprolol 25 MG TAB PO ×2 (08:08→19:38)
[2024-12-09] MEDS: Nicotine 21 MG/24 HR PATCH TD (08:08)
[2024-12-09] MEDS: Enoxaparin 40 MG/0.4 ML SYR SC (12:41)
[2024-12-09 19:33] VITALS: BP 104/83; PULSE 117; RESP 18; TEMP 36.8; O2SAT 98
[2024-12-10] MEDS: ceFAZolin 2 GM/50 ML BAG IVPB ×3 (03:59→21:26)
[2024-12-10] MEDS: Normal Saline Flush 10 ML SYR IVP ×4 (03:59→21:27)
[2024-12-10 07:31] VITALS: BP 111/73; PULSE 93; RESP 16; TEMP 36.5; O2SAT 100
[2024-12-10] MEDS: Folic Acid 1 MG TAB PO (08:22)
[2024-12-10] MEDS: Metoprolol 25 MG TAB PO ×2 (08:22→21:26)
[2024-12-10] MEDS: Nicotine 21 MG/24 HR PATCH TD (08:22)
--- NOTE | 2024-12-10 09:33 | CMPROGNOTE_ITS ---
Care Management Progress Note Progress Note Text Progress Note Text: Cathy is doing well and denies any c/o. She is really getting excited about her discharge on 12/12. She is both eager and fearful of her impending cardiac surgery. CM provided active listening to allow Cathy to get her thoughts out. Cathy will be going out to lunch later this afternoon. She has signed her furlough agreement and will check out and in at the desk, as planned with nursing staff and Cathy. Discharge Potential Discharge Needs: Surgical F/U Appt (cardiac appt and valve replacement on 12/15. ) and Other (needs dental consult - referral sent) Anticipated Barriers to Discharge: None Identified Patient/Family Education Needs: Review discharge instructions, discuss Ask Me Three Transportation: Private vehicle Plan: Anticipate that Cathy will remain in the swing bed to complete her antibiotic course that is scheduled to be completed on 12/12, and have cardiac surgery on 12/15 as previously planned. She will transport home in a private vehicle and continue per her plan of care. CM will continue to follow. Social Determinants of Health Screening Social Determinants of Health last assessed: 12/10/24 Will the Patient Participate in the Screening?: Yes Do you worry about having a steady place to live?: no Problems where you live: no known problems In the past 12 months, have you had to go without electric, gas, oil or water in your home?: no Have you or anyone in your house had to go without enough food to eat?: no Has lack of transportation kept you from medical appointments or from doing things needed for daily living?: no Has anyone in your life made you feel unsafe or unsupported?: no How hard is it for you to pay for the very basics like food, housing, medical care, and heating? Would you say it is:: Not hard at all Do you want help finding or keeping work or a job?: I do not need or want help If for any reason you need help with day-to-day activities such as bathing, preparing meals, shopping, managing finances, etc., do you get the help you need?: I don?t need any help How often do you feel lonely or isolated from those around you?: Never Do you speak a language other than Kiswahili at home?: No Does the patient want assistance with any of the above?: No
[2024-12-10] MEDS: Enoxaparin 40 MG/0.4 ML SYR SC (11:53)
--- NOTE | 2024-12-10 14:54 | INPN_ITS ---
PT Notes Visit Reasons: gram posit bacteremia,sept emboli,osteomyelyt,endo Physical Therapy Inpatient Progress Note Date: 12/10/2024 Dates of Service: 12/03/2024 through Precautions: Fall. Standard. WBAT on B UE/LE. Subjective: Looking forward to going home on 12/12/24 however anxious about upcoming surgery on 12/15/2024. Agreeable to a short session as her mother is coming to pick her up to eat in a restaurant. Still reports pain in the R shoulder. Just sore on the R knee at this time. Objective: General Observation: Setaed at edge of bed waitng for mother to come and pick her up. Mental Status: Alert and oriented as to person, place, time, and purpose. Able to pay attention, focus, and respond appropriately. Pain: 4-5/10 in R shoulder at end of range of motion; not much pain in R knee 1-2/10 Vital Signs: Closely monitored by nursing staff ROM: Right Upper Extremity: Shoulder flexion continues to be at 30 degrees actively with moderate pain at end of range. Shoulder abduction now about 20 degrees with pain at end of range with moderate pain at end of range. Elbow flexion WFL. Wrist flexion WFL. Functional opening and closing of hand WFL. Right Lower Extremity: Hip flexion WFL. Hip abduction WFL. Knee flexion 0 degrees to 100 degrees. Ankle dorsiflexion WFL. Ankle plantarflexion WFL. Strength: Right Upper Extremity: Shoulder flexors 2-/5. Shoulder abductors 2-/5. Elbow flexors 3/5. Elbow extensors 3/5. Research Development Director strong. Right Lower Extremity: Hip flexors 4-/5. Hip abductors 4-/5. Knee flexors 3-/5. Knee extensors 3-/5. Ankle dorsiflexors 4/5. Ankle plantarflexors 4/5. Bed Mobility/Transfers: Supine to sit independent Sit to supine independent Sit to stand independent Stand to sit independent Bed to toilet independent Toilet to bed independent Bed to toilet independent Reclining chair to bed independent Gait: Continues to require supervision with 600 feet of level surface ambulation without assistive device, no wheelchair follow needed. Ana increasing. Balance: Static Sitting: Normal Dynamic Sitting: Normal Static Standing: Good Dynamic Standing: Good Assessment: Patient is a 34 year-old female who converted to swing bed level of care on 11/24/2024 for management of MSSA bacteremia, infective endocarditis of tricuspid valve with scheduled surgery on 12/15/2024 [place] [facility] [place], opiod use disorder, R heart failure, septic pulmonary embolism, septic discitis of lumbar region, and anemia. She is S/P debulking procedure of perforated tricuspid valve from endocarditis on 11/01/24 and is S/P irrigation and debridement of septic R shoulder and septic R knee on 11/14/2024. AROM in R shoulder staying the same with pain report of same intensity at end of range. Patient presents with clinical signs and symptoms consistent with current/admitting diagnoses that have resulted to mobility limitations, gait instability, generalized weakness, and overall ADL decline as demonstrated by the following impairment level findings: 1. Decreased strength to R shoulder and R knee major muscle groups 2. Impaired standing balance 3. Impaired activity tolerance 4. Limitation of joint range of motion in R shoulder and R knee Impairments are contributing to the following functional limitations: 1. Increased completion time for mobility ADL performance 2. Increased risk for falls Patient is assessed as a 41208 low complexity based on the following: History: 34-year-old female with past medical history as indicated above Examination: Demonstrable impairment in strength, balance, and mobility level with underlying impairments and functional limitations as exhibited above Presentation: Evolving Decision Makin moderate complexity Goals: Goals X1 week 1. Independent gait on level surface with use of no device for at least 600 feet without report of pain nor dyspnea, NOT MET CONTINUE 2. Independent stair negotiation while holding onto B rails for at least 5 steps without report of pain nor dyspnea, NOT MET CONTINUE 3. Independent with home exercise program NOT MET CONTINUE 4. Good static and dynamic standing balance/tolerance NOT MET CONTINUE 5. Patient will achieve increase in AROM in R shoulder by 10-15 degrees to improve ability to use R UE for feeding and dressing Plan of Care/Treatment Plan: 1x/day, 5 days/week x 2 weeks. Plan of care has been reviewed with the SUPPORT CLERK providing the service under Physical Therapy direction. Initiate Physical Therapy intervention for pain management and gentle strengthening of R shoulder and R knee, stairs training, and balance training. Treatment focus: Pre-medicate for pain. PROM and AAROM to R shoulder and knee as tolerated uisng multi-modal PT intereventions. Progressive strengthening to R quads. Balance training. May walk with nursing staff in hallway 1-2x day. Monitor vital signs during session. DISCHARGE RECOMMENDATIONS: [] Home with no services [] [] Home with services [specify] [] Home with outpatient PT [] [] SNF for continued rehabilitation [] [] Therapy Coordinator Care [] [] SNF versus LTC based on ability to participate and progress [] [X] HH PT vs OP PT for continued post-op rehab of R shoulder and R knee, stairs training, and balance training TREATMENT CODE/TIME: 69093 x 15 minutes for 1 unit (2:54-15:09).
[2024-12-10 19:22] VITALS: BP 107/62; PULSE 113; RESP 15; TEMP 36.7; O2SAT 100
[2024-12-10 21:57] VITALS: BP 112/82
[2024-12-11] MEDS: ceFAZolin 2 GM/50 ML BAG IVPB ×3 (03:59→21:24)
[2024-12-11] MEDS: Normal Saline Flush 10 ML SYR IVP ×3 (04:00→21:25)
[2024-12-11 08:37] VITALS: BP 140/73
[2024-12-11] MEDS: Metoprolol 25 MG TAB PO ×2 (09:20→21:24)
[2024-12-11] MEDS: Nicotine 21 MG/24 HR PATCH TD (09:21)
--- NOTE | 2024-12-11 09:39 | PT.INTREAT ---
Date of service: 12/11/24 Time of Service: 09:15 PT Notes Visit Reasons: gram posit bacteremia,sept emboli,osteomyelyt,endo Inpatient Physical Therapy Treatment Note [facility] Date: December 11, 2024 PRECAUTIONS: Fall. Standard. WBAT on B UE/LE. SUBJECTIVE: Cathy notes she can not wait to go home tomorrow. Knee is feeling stronger and feels she is able to extend it more. Shoulder remains very limited. OBJECTIVE: ? PAIN: 2-3/10 in R shoulder, mild R knee VITALS: closely monitored by nursing Therapeutic Activities 32203: Direct one-on-one instruction in dynamic activities to improve functional performance. ?? BED MOBILITY/TRANSFERS? Rolling L/R: independent Supine-sit: ?independent? Sit-supine: ? independent ? Sit-stand: ? independent? Stand-sit: ?? independent? Bed-Chair:? ?independent ? Chair-bed: independent Provided skilled cues and instruction on performance and technique throughout. Gait Training 28033: Direct one-on-one instruction and skilled instruction in: Movement sequencing ,Turning and movement with proper form. Patient education regarding pacing and breathing techniques to maximize activity tolerance? GAIT? Assistive Device: ?None ? Weight bearing: FWB Assist: ?independent ? Distance:??600' ? Deviation: ?minimal antalgic RLE ? Therapeutic Exercises 04664: Direct one-on-one instruction in therapeutic exercises to develop strength, endurance, range of motion and flexibility. Exercises: Standing forearm wall slides with AAROM form LUE [id number] Standing wall slides elbow extended with AAROM from LUE [id number] Isometric shoulder flexion 5x 10secs hold Isometric shoulder extension 5x 10secs hold Isometric shoulder abduction 5x 10secs hold Isometric shoulder external rotation [id number] hold Isometric shoulder internal rotation [id number] hold Provided skilled instruction in proper exercise performance Provided skilled manual cues to facilitate proper muscle recruitment and/or form: ASSESSMENT:?pt tolerated activity well, pt instructed to work within limitation of pain. Plan of Care/Treatment Plan:Continue Physical Therapy intervention for pain management and gentle strengthening of R shoulder and R knee, stairs training, and balance training. TREATMENT CODE/TIME: [id number] 15 minutes; Therapeutic Exercise 22030b1-17 minutes Total treatment 25 minutes 9:15-9:40 am URSZULA Mackenzie
[2024-12-11] MEDS: Folic Acid 1 MG TAB PO (09:47)
[2024-12-11] MEDS: Enoxaparin 40 MG/0.4 ML SYR SC (12:47)
[2024-12-12] MEDS: Normal Saline Flush 10 ML SYR IVP ×2 (06:18→08:15)
[2024-12-12] MEDS: ceFAZolin 2 GM/50 ML BAG IVPB ×2 (06:19→11:56)
[2024-12-12 06:53] VITALS: BP 109/76; PULSE 88; RESP 16; TEMP 36.3; O2SAT 99
[2024-12-12] MEDS: Nicotine 21 MG/24 HR PATCH TD (08:14)
[2024-12-12] MEDS: Metoprolol 25 MG TAB PO (08:14)
[2024-12-12] MEDS: Folic Acid 1 MG TAB PO (08:14)
--- NOTE | 2024-12-12 09:24 | PT.INTREAT ---
Date of service: 12/12/24 Time of Service: 09:10 PT Notes Visit Reasons: gram posit bacteremia,sept emboli,osteomyelyt,endo Inpatient Physical Therapy Treatment Note [facility] Date: December 12, 2024 PRECAUTIONS:Fall. Standard. WBAT on B UE/LE. SUBJECTIVE: Cathy notes she is anxious to go home. Has one more round of treatment at noon and then hopeful to be discharged. Notes she is pretty tired this morning for did not sleep well anticipating being able to return home. OBJECTIVE: ? Therapeutic Activities (24806s9-52 minutes): Direct one-on-one instruction in dynamic activities to improve functional performance. ? BED MOBILITY/TRANSFERS? Rolling L/R: Independent Supine-sit: Independent? Sit-supine: independent ? Sit-stand: independent? Stand-sit: Independent ? Bed-Chair:independent ? Chair-bed: Independent Provided skilled cues and instruction on performance and technique throughout. Patient education regarding pacing and breathing techniques to maximize activity tolerance? GAIT? Assistive Device: None? Weight bearing: AT Assist: Independent? Distance:? 600ft ? Deviation: Minimal antalgia favoring R knee ? STAIRS:able to ascend and descend a flight of stairs with use of railing without difficulty ?Deffered all exercises with her shoulder. Will continue with her exercises given to promote her overall mobility at home. ? ASSESSMENT:? Independent with all transfers and bed mobility. Stable gait without assistive device. Recommended use of a trekking pole with outside ambulation if needed due to snowy conditions. PLAN: Patient to be discharged home this afternoon. TREATMENT CODE/TIME: 23447u9- 15 minutes 9:10-9:25 am DISCHARGE RECOMMENDATION: Discharge Home this afternoon Disclaimer: This note was created using [employer] voice recognition software. It was reviewed for major content. However, there may be multiple small discrepancies and errors due to the voice recognition aspects of the software.
--- NOTE | 2024-12-12 09:53 | PDOC.CMDIS ---
Date of service: 12/12/24 Time of Service: 09:53 LACE Index Scoring Tool Questions: Length of Stay (in days): 14 or more Was the patient admitted via the E.D.?: No E.D. Visits: 1 Answers: Total Score: 8 Risk of Readmission: Low Risk Care Management Discharge Plan Reason for Hospitalization: gram posit bacteremia,sept emboli,osteomyelyt,endo Discharge Plan: Cathy is discharged home via private vehicle with family. Pt will follow up with community providers and plan of care as directed in her discharge. No new services are ordered prior to this discharge. Patient/Family Education Needs: Review discharge instructions, limitations, medications and plan to follow up with community providers. Discuss ask me three. SDOH Health Related Social Needs: No Data to Display
--- NOTE | 2024-12-12 11:16 | W.PM.DS.N ---
Date of service: 12/12/24 Time of Service: 11:16 DS: Diagnosis Discharge Diagnosis (1) MSSA bacteremia: Status: Acute (2) Infective endocarditis of tricuspid valve: Status: Acute (3) Opioid use disorder: Status: Chronic (4) Right heart failure: (5) Smoker: Status: Acute (6) Septic pulmonary embolism: (7) DVT prophylaxis: Status: Acute (8) Septic discitis of lumbar region: Status: Acute (9) Anemia: Status: Chronic (10) Discharge planning issues: Status: Acute Discharge Plan Disposition Patient Disposition: Home Condition: Stable Discharge Details Reason For Visit: gram posit bacteremia,sept emboli,osteomyelyt,endo Admit Date/Time: 11/23/24 16:32 Admit Provider: Ervin Bartlett Attending Provider: Ervin Bartlett Primary Care Provider: Jorge Foster Hospital Course Hospital Course: Th and on opioid use disorder is 34-year-old female patient with a past medical history of tobacco abuse, IVDA and opioid use disorder, recent admission to [facility] s/p transfer from [facility] ED on 10/17/2024 with sepsis, 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 Eliquis at [facility] was completed by septic pulmonary emboli associated with right heart failure, septic joint infection to right shoulder, right knee and lumbar spine with epidural abscess. RI completed a debulking procedure of endocarditis on 11/01/2024. An I&D of septic right shoulder on 11/10/2024 and septic right knee on 11/14/2024 we will also completed with negative aspiration of the left shoulder joint. The patient was initially on medical treatment for opioid use disorder but later changed her mind and was tapered off methadone. Initially treated here with hydromorphone for pain but was later on weaned off. Patient stating that she feels better and motivated and is confident that she can stay away from drugs. Last CBC and chemistry completed on 12/07/2024 showed no acute abnormalities. During the stay the patient has been hemodynamically stable and afebrile. Blood cultures from 12/10/2024 were negative at 24 hours.Metoprolol to tartrate initiated at [facility] was continued upon discharge. The patient will be discharged home today with follow-up with PCP within 1 to 2 weeks. The patient has an appointment at [facility] on 12/13/2024 in preop for valve replacement procedure scheduled on 12/15/2024. During discussion with the TOWER HELPER?cardiology Evelina Davison, there was no need to repeat lumbar spine MRI and echocardiogram completed respectively on 11/29/2024 and 11/23/2024. Request for dental examination and patient could not be done as we do not offer inpatient dentistry consult, [facility] was made aware. Dental appointment made but conflicting with pre-op intake at [facility] and patient was made aware that presenting to [facility] for cardiovascular procedure was the priority.Twinrix for hepatitis A and hepatitis B vaccination refused. Discussed with Dr. Bartlett Home Meds and New Rx's Prescriptions: New acetaminophen 325 mg Tablet 650 mg PO Q6H PRN PRNQty: 30 0RF folic acid 1 mg Tablet 1 mg PO DAILY Qty: 30 0RF ibuprofen 400 mg Tablet 400 mg PO QID PRN PRNQty: 30 0RF metoprolol tartrate 25 mg Tablet 25 mg PO BID Qty: 60 0RF nicotine 21 mg/24 hr Patch 24 Hour 21 mg transdermal DAILY Qty: 28 0RF Discharge Instructions Stand Alone Forms: Nursing Discharge Form Referrals: Jorge Foster [Primary Care Provider] - (Follow-up with PCP within 7 days of discharge please. ) Candy Pope [DENTIST] - (This appointment is with [facility] [phone] [place] [address]. The Patient is aware and has this info. There was no provider to enter for that facility. Dental exam requested by cardiovascular Sx in the setting of MSSA bacteremia w multiple seeding sites- Antibiotic treatment completed 12/12- Valve replacement scheduled on 12/15- would need an appointment on 12/13, please at [facility] with report forwarded to Chasidy Davison APRN at [facility].) Activity:: Activity as Tolerated Equipment/Supplies:: No Equipment Needed Diet:: heart healthy DS: Summary Time Spent with Patient providing and/or coordinating discharge services: Greater than 30 minutes Status at Discharge Functional status at discharge: independent ambulation Overall status at discharge: patient is back to baseline Mental Status: mental status grossly normal Speech and Movement: speech and movement normal Mood: congruent mood Affect: normal affect Quality:SDOH Health Related Social Needs: No Data to Display Exam Narrative Exam Narrative: Constitutional The patient is without acute distress HENMT:Facial structures with normal appearance Neck: Normal ROM, no meningeal signs Neuro:alert and oriented x 4. No neurological focal deficit Resp: Unlabored breathing, clear lung bilaterally Cardio: regular rhythm, S1, S2, + murmur second right intercostal GI: Abdomen is not distended, soft and non tender, bowel sounds are present : Negative Costovertebral angle tenderness Back/spine/Pelvis: No back tenderness, normal alignment Integumentary: No skin lesions or rash Extremities: strength 5/5 to bilateral lower and upper extremities Psych: RASS 0, congruent mood and normal anxious affect affect. Psych Mental Status: mental status grossly normal Speech and Movement: speech and movement normal Mood: congruent mood Affect: normal affect DS: Data Vitals/I&O Vitals and I&O: Vital Signs Temperature 36.3 C L 12/12/24 06:53 Temperature Source Temporal Artery Scan 12/12/24 06:53 Pulse 88 12/12/24 06:53 Pulse Rhythm Regular 11/23/24 17:49 Respiratory Rate 16 12/12/24 06:53 Respiratory Effort Normal, Non-Labored 11/23/24 17:49 Respiratory Depth Normal 11/23/24 17:49 Respiratory Pattern Normal 11/23/24 17:49 Blood Pressure 109/76 12/12/24 06:53 Pulse Oximetry 99 12/12/24 06:53 Oxygen Delivery Method Room Air 12/12/24 06:53 Oxygen Flow Rate 0 12/12/24 06:53 Pain Level 0 12/10/24 08:50 Comment checked BP prior to Metoprolol 12/10/24 21:57 Intake & Output 12/11/24 12/11/24 12/12/24 11:59 23:59 11:59 Intake Total 60 / 170 110 / 170 50 / 50 Balance 60 / 170 110 / 170 50 / 50 Weight 74.3 kg Intake: IV 60 / 170 110 / 170 50 / 50 Other: Urine Color Yellow Yellow Urine Appearance Clear Clear Comment unknown amount in toilet Data Completed and Pending Labs on day of discharge: Preliminary micro results at discharge 12/10/24 10:12 Blood Culture - Preliminary Blood NO GROWTH 24 HOURS 12/10/24 10:05 Blood Culture - Preliminary Blood NO GROWTH 24 HOURS PFSH All Active Problems (Updated 11/29/24 @ 19:35 by Celine Lundberg NP) Anemia (Chronic) Septic discitis of lumbar region (Acute) MSSA bacteremia (Acute) Opioid use disorder (Chronic) Discharge planning issues (Acute) Smoker (Acute) DVT prophylaxis (Acute) Septic arthritis of knee, right (Acute) Septic arthritis of shoulder, right (Acute) Infective endocarditis of tricuspid valve (Acute) Medical History (Updated 11/29/24 @ 19:35 by Celine Lundberg NP) Ectopic atrioventricular node tachycardia Septic pulmonary embolism Right heart failure Social History (Updated 11/23/24 @ 19:55 by Ervin Bartlett) Smoking/Tobacco Use Status: Current every day Smoking risk assessment performed?: Yes Alcohol Intake: former Drug use: Current Sobriety Substance use type: former substance user and IV drugs Housing: house Additional Social history: Living with mother and 3 kids in [facility] Time Spent with Patient Time Spent with Patient: 70-84 minutes4 Time was spent: preparing to see the patient(eg.review tests), obtaining and/or reviewing separately otained hiistory, ordering medications,tests, procedures, referring, communicating with other health long term acute care registered nurse, indepentently interpreting results, counseling the patient and care coordination
[2024-12-12] MEDS: Ergocalciferol 50000 UNITS CAP PO (11:56)
[2024-12-12] MEDS: Enoxaparin 40 MG/0.4 ML SYR SC (11:56)
== END 2024-12-12 12:51 | disposition home or self-care (01) | DRG 288 ==
PROVIDERS: Nurse Practitioner Acute Care; Nurse Practitioner Family; Admitting Provider Family Medicine; PCP Physician Assistant; Visit Provider Family Medicine
DX: I33.0 Acute and subacute infective endocarditis (principal); G06.2 Extradural and subdural abscess, unspecified; I26.90 Septic pulmonary embolism without acute cor pulmonale; R78.81 Bacteremia; M46.36 Infection of intervertebral disc (pyogenic), lumbar region; M00.811 Arthritis due to other bacteria, right shoulder; M00.861 Arthritis due to other bacteria, right knee; B95.61 Methicillin susceptible Staphylococcus aureus infection as the cause of diseases classified elsewhere; I50.810 Right heart failure, unspecified; F17.210 Nicotine dependence, cigarettes, uncomplicated; D64.9 Anemia, unspecified
CPT/HCPCS: 00123; 36415; 72158; 80048; 86704; 86709; 86803; 87040; 87340; 87522; 93308; 97110; 97161; 97530; 99306; 99309; 99316; J1650; 83735; 85025; 86140; 99310; J0690; J1756

== ENCOUNTER 2025-06-05 15:17 | Emergency (ER) | payer MEDICAID, SELFPAY ==
[2025-06-05 15:21] VITALS: BP 124/82; PULSE 107; RESP 18; TEMP 37.2; O2SAT 94
[2025-06-05 15:24] VITALS: BP 124/82; PULSE 107; RESP 18; TEMP 37.2; O2SAT 94
--- NOTE | 2025-06-05 15:45 | RT.EKG_ITS ---
APPROVED REPORT Exam: Resting ECG Reason for Exam: episodes of chest tightness w wheeze Patient Location: E HR:90 bpm ECG Measurements Heart Rate 90 AXIS SD 137 P 87 QRSd 88 QRS 24 QT 275 T 86 QTc 336 Conclusion Sinus rhythm at a rate of 90 without acute ischemic change, similar to prior EKG on 10/17/2024.
--- NOTE | 2025-06-05 15:53 | ED.GENADUL_ITS ---
Discharge Plan Disposition Patient Disposition: Against Medical Advice Discharge Details Clinical Impression: Cough Primary Care Provider: None,None ED Provider: Kenrda Dior Home Meds and New Rx's Prescriptions: No Action acetaminophen 325 mg Tablet 650 mg PO Q6H PRN PRNQty: 30 0RF folic acid 1 mg Tablet 1 mg PO DAILY Qty: 30 0RF ibuprofen 400 mg Tablet 400 mg PO QID PRN PRNQty: 30 0RF metoprolol tartrate 25 mg Tablet 25 mg PO BID Qty: 60 0RF nicotine 21 mg/24 hr Patch 24 Hour 21 mg transdermal DAILY Qty: 28 0RF Discharge Data Discharge Date/Time-TO BE ENTERED AT DEPARTURE: 06/05/25 17:11 HPI General Date/Time Provider Initiated Documentation: 06/05/25 15:28 . HPI Narrative: Cathy is a 34-year-old female with substance use disorder presenting for medical clearance accompanied by police after missing court date today. Reports anxiety related to legal situation, hesitant to take medication due to side effects. History of asthma, no issues in past 5 years. Reports she has been sick with viral symptoms for a week, including runny nose and cough. This is accompanied by shortness of breath/heaviness in her chest/wheezing with exertion. Denies fever/chills, chest pains, dental pain/pus drainage/swelling in mouth, nausea/vomiting, abdominal pain, change in bowel or bladder function. Recently hospitalized this winter for infective endocarditis, was on IV antibiotics and inpatient for 2 months. Was supposed to follow-up with cardiology for valve replacement, but did dental infection requiring tooth extraction. She was nervous, so did not get tooth extraction performed. Not had any follow-up with PCP or cardiology since discharge from hospital in December. Has not been taking her folic acid or metoprolol as prescribed. Has been sober for 9 months until recently, returned to crack, xylazine, and fentanyl use three days ago. Admits to regular tobacco use and occasional alcohol use, last instance a week ago. Has sores on her hands attributed to xylazine use, but she finds them painful and has been picking at them Related Data Home Medications ?Medication ?Instructions ?Recorded ?Confirmed acetaminophen 325 mg tablet 650 mg (2 x 325 mg) PO Q6H PRN PRN 12/12/24 06/05/25 #30 tabs folic acid 1 mg tablet 1 mg PO DAILY #30 tabs 12/1206/05/25 ibuprofen 400 mg tablet 400 mg PO QID PRN PRN #30 ta bs 12/12/24 06/05/25 metoprolol tartrate 25 mg tablet 25 mg PO BID #60 tabs 12/12/24 06/05/25 nicotine 21 mg/24 hr daily 21 mg transdermal DAILY #28 ea 12/12/24 06/05/25 transdermal patch Previous Rx's ?Medication ?Instructions ?Recorded acetaminophen 325 mg tablet 650 mg (2 x 325 mg) PO Q6H PRN PRN 12/12/24 #30 tabs folic acid 1 mg tablet 1 mg PO DAILY #30 tabs 12/12 ibuprofen 400 mg tablet 400 mg PO QID PRN PRN #30 ta bs 12/12/24 metoprolol tartrate 25 mg tablet 25 mg PO BID #60 tabs 12/12/24 nicotine 21 mg/24 hr daily 21 mg transdermal DAILY #28 ea 12/12/24 transdermal patch Allergies Allergy/AdvReac Type Severity Reaction Status Date / Time Penicillins Allergy Severe Anaphylaxsi Verified 06/05/25 15:24 s General Stated Complaint: GenMedical FERNY: 3 Exam Narrative Exam Narrative: General Appearance: Normal. Patient does appear anxious Vital signs: Within normal limits. Tachycardia noted on arrival, resolved with reassessment Respiratory: Clear breath sounds bilaterally, no wheezing or crackles. Easy work of breathing, no cough or tachypnea Cardiovascular: Regular rate and rhythm, normal heart sounds Gastrointestinal: Soft, non-tender abdomen, nondistended. Skin: Multiple shallow round ulcerations to bilateral lower arms with mild erythema immediately surrounding. No drainage, induration, or edema noted Psychiatric: Normal. Course Vital Signs Vital signs: Vital Signs Temperature 37.2 C 06/05/25 15:21 Pulse 107 H 06/05/25 15:21 Respiratory Rate 18 06/05/25 15:21 Blood Pressure 124/82 06/05/25 15:21 Pulse Oximetry 94 06/05/25 15:21 Temperature 37.2 C 06/05/25 15:24 Temperature Source Oral 06/05/25 15:24 Pulse 107 H 06/05/25 15:24 Respiratory Rate 18 06/05/25 15:24 Blood Pressure 124/82 06/05/25 15:24 Pulse Oximetry 94 06/05/25 15:24 Medical Decision Making Initial Assessment: 34-year-old female for medical clearance brought in by P. Not taking prescribed folic acid and metoprolol. Differential Diagnosis includes but is not limited to: PNA, viral illness such as COVID-19, reactive airway disease/asthma, symptomatic anemia, cardiac arrhythmia, anxiety. No red flags concerning for ACS; HEART score 1, no troponins indicated based on reassuring history. Xylazine related lesions not concerning for infection at this time. I independently interpreted the following tests: EKG performed, normal sinus rhythm, rate 90. Normal intervals, no changes consistent with acute ischemia. CBC notable for leukocytosis, white cell count 12.72. Mild hypokalemia noted, potassium 3.1. Magnesium unremarkable. Bilirubin 1.4, unchanged from previous. COVID/flu/RSV negative. RN cleansed wounds for patient, but patient did not want to wait for dressings to be applied. Limited supplies provided to patient for home use Overall workup today reassuring, however Cathy did not wish to complete medical workup including chest x-ray. There does remain significant concern for potential of pneumonia, especially in light of leukocytosis and shortness of breath on exertion. 1. I explained the current situation and condition to the patient. 2. I explained the recommended treatment for this condition -continuation of workup, including chest x-ray 3. I explained the risk of not having the recommended treatment -worsening of condition, disability, 4. The patient understands this information has no questions, and repeated back this information. 5. The patient states that they need to leave and will return or follow-up as needed. 6. Mental status is lucid and the patient has decision-making capacity. 7. Patient signed AMA paperwork and left the department. She was made aware that she can return anytime Disposition: - Left AMA. - Wound care supplies provided, including bacitracin and rolled gauze. Patient Education: Discussed importance of resuming prescribed medications. Explained tests and treatments provided. Patient consented to the use of PRISICLA PFSH All Active Problems (Updated 06/05/25 @ 20:40 by Kendra Gibbs) Cough (Acute) Septic discitis of lumbar region (Acute) Septic arthritis of knee, right (Acute) Septic arthritis of shoulder, right (Acute) Infective endocarditis of tricuspid valve (Acute) Medical History Ectopic atrioventricular node tachycardia MSSA bacteremia Opioid use disorder Septic pulmonary embolism Right heart failure Smoker Social History (Updated 11/23/24 @ 19:55 by Ervin Bartlett) Smoking/Tobacco Use Status: Current every day Smoking risk assessment performed?: Yes Alcohol Intake: former Drug use: Current Sobriety Substance use type: former substance user and IV drugs Housing: house Additional Social history: Living with mother and 3 kids in [facility]
[2025-06-05 16:10] VITALS: RESP 24
--- NOTE | 2025-06-05 16:12 | NUR.NOTE ---
Patient presented to the ER with [facility] for clearance to go to the skilled nursing. Provider saw patient and made orders for lab and xray and other diagnostic test. [facility]SP state he will get court orders for citation and then he will leave and patient will to present to the court house tomorrow. Patient noted with multiple lesions from self picking, patient state she had xylazine yesterday. Patient also reported that she had crack and fentanyl yesterday
[2025-06-05 16:14] LABS: Abs Immature Grans 0.02 10^3/uL (0.0-0.06); HCT 38.6 % (36.0-46.0); HGB 13.1 g/dL (11.2-15.7); Immature Grans % 0.2 %; MCH 31.3 pg (27.0-33.0); MCHC 33.9 % (32.0-36.0); MCV 92 fL (80-95); MPV 10.7 fL (8.0-11.0); Platelet Count 190 10^3/uL (130-400); RBC 4.18 10^6/uL (3.93-5.22); RDW 12.7 % (11.7-14.6); RDW-SD 42.6 fL; WBC 12.72 10^3/uL (4.4-10.8)
[2025-06-05 16:28] LABS: ALT 26 U/L (14-59); AST 26 U/L (15-37); Albumin 3.9 g/dL (3.4-5.0); Alkaline Phosphatase 68 U/L (46-116); Anion Gap 8.5 mmol/L (3-11); BUN 9 mg/dL (7-18); Bilirubin, Total 1.4 mg/dL (0.2-1.0); CO2 26.5 mmol/L (21.0-32.0); Calcium 8.9 mg/dL (8.5-10.1); Chloride 102 mmol/L (98-107); Estimated GFR 86.57 (mL/min/1.73m2); Glucose 121 mg/dL (74-106); Magnesium 1.8 mg/dL (1.8-2.4); Potassium 3.1 mmol/L (3.5-5.1); Sodium 137 mmol/L (136-145); Total Protein 7.3 g/dL (6.4-8.2)
--- NOTE | 2025-06-05 16:40 | NUR.NOTE ---
Patient refused doing a test
[2025-06-05 17:09] VITALS: BP 120/80; PULSE 80; RESP 18; TEMP 37; O2SAT 94
== END 2025-06-05 17:11 | disposition left against medical advice (07) ==
LOC: ER 16:08
PROVIDERS: Emergency Provider Nurse Practitioner Family
DX: R05.9 Cough, unspecified (principal); F41.9 Anxiety disorder, unspecified; R06.2 Wheezing; R06.02 Shortness of breath; F14.90 Cocaine use, unspecified, uncomplicated; F15.90 Other stimulant use, unspecified, uncomplicated
CPT/HCPCS: 99285; 99284; 87428; 80053; 93005; 83735; 85025; 93010

== ENCOUNTER 2025-06-21 13:01 | Emergency (ER) | payer MEDICAID, SELFPAY ==
[2025-06-21] VITALS (29 sets, daily range): BP systolic 112–135; BP diastolic 61–88; PULSE 66–87; RESP 12–24; TEMP 36.8; O2SAT 97–100
--- NOTE | 2025-06-21 13:00 | DI.RAD_ITS ---
Exam(s) XR PORTABLE CHEST AP EXAM: XR PORTABLE CHEST AP CLINICAL HISTORY: Chest pain. TECHNIQUE: 2D digital imaging was performed. COMPARISON: No exams were available for comparison FINDINGS: Single AP portable view. Heart size is upper normal. The mediastinum is not widened. Lungs are clear. No infiltrates nor obvious pleural effusions. IMPRESSION: No acute pulmonary findings on this single AP portable view of the chest. DATA REPOSITORY: RADIATION DOSE DELIVERED:
--- NOTE | 2025-06-21 13:00 | RT.EKG_ITS ---
APPROVED REPORT Exam: Resting ECG Reason for Exam: Chest Pain Patient Location: E HR:79 bpm ECG Measurements Heart Rate 79 AXIS NM 135 P 63 QRSd 84 QRS 150 QT 410 T 171 QTc 472 Conclusion Sinus rhythm...normal P axis, V-rate 60- 99 Right axis deviation...QRS axis (111,269) Abnormal T, consider ischemia, lateral leads...T <-0.20mV, I aVL V5 V6 No STEMI
--- NOTE | 2025-06-21 13:20 | W.ED.GENAD ---
Discharge Plan Disposition Condition: Good Discharge Details Chief Complaint: Chest Pain Clinical Impression: Atypical chest pain Primary Care Provider: None,None ED Provider: Dominic Reed Home Meds and New Rx's Prescriptions: No Action acetaminophen 325 mg Tablet 650 mg PO Q6H PRN PRNQty: 30 0RF folic acid 1 mg Tablet 1 mg PO DAILY Qty: 30 0RF ibuprofen 400 mg Tablet 400 mg PO QID PRN PRNQty: 30 0RF metoprolol tartrate 25 mg Tablet 25 mg PO BID Qty: 60 0RF nicotine 21 mg/24 hr Patch 24 Hour 21 mg transdermal DAILY Qty: 28 0RF HPI General Date/Time Provider Initiated Documentation: 06/21/25 13:07. HPI Narrative: The patient is a 34-year-old female with a history of cardiac issues, presenting with chest pain. 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 The pain radiates to the lower chest, is persistent, and exacerbates with deep inspiration. The pain is alleviated by sitting up or leaning forward. She developed dyspnea today, concurrent with the chest pain. She denies fever, chills, cough, or recent leg swelling. She experienced mild leg swelling four days following a fentanyl injection relapse, which resolved the next day. There is no history of deep vein thrombosis (DVT). The patient is scheduled for a valve replacement in December 2024, which has been postponed due to a dental infection. She is currently awaiting the completion of dental treatment for follow-up. PAST SURGICAL HISTORY: The patient has undergone shoulder and knee surgery secondary to septic arthritis. Related Data Home Medications ?Medication ?Instructions ?Recorded ?Confirmed acetaminophen 325 mg tablet 650 mg (2 x 325 mg) PO Q6H PRN PRN 12/12/24 06/21/25 #30 tabs folic acid 1 mg tablet 1 mg PO DAILY #30 tabs 12/12/24 06/21/25 Held on 06/21/25. Instructions: Pt Stopped/Never Started ibuprofen 400 mg tablet 400 mg PO QID PRN PRN #30 tabs 12/12/24 06/21/25 metoprolol tartrate 25 mg tablet 25 mg PO BID #60 tabs 12/12/24 06/21/25 Held on 06/21/25. Instructions: Pt Stopped/Never Started nicotine 21 mg/24 hr daily 21 mg transdermal DAILY #28 ea 12/12/24 06/21/25 transdermal patch Held on 06/21/25. Instructions: Pt Stopped/Never Started Previous Rx's ?Medication ?Instructions ?Recorded acetaminophen 325 mg tablet 650 mg (2 x 325 mg) PO Q6H PRN PRN 12/12/24 #30 tabs folic acid 1 mg tablet 1 mg PO DAILY #30 tabs 12/12/24 Held on 06/21/25. Instructions: Pt Stopped/Never Started ibuprofen 400 mg tablet 400 mg PO QID PRN PRN #30 tabs 12/12/24 metoprolol tartrate 25 mg tablet 25 mg PO BID #60 tabs 12/12/24 Held on 06/21/25. Instructions: Pt Stopped/Never Started nicotine 21 mg/24 hr daily 21 mg transdermal DAILY #28 ea 12/12/24 transdermal patch Held on 06/21/25. Instructions: Pt Stopped/Never Started Allergies Allergy/AdvReac Type Severity Reaction Status Date / Time Penicillins Allergy Severe Anaphylaxsi Verified 06/21/25 14:21 s General Stated Complaint: Chest Pain FERNY: 2 Review of Systems All systems reviewed & are unremarkable except as noted in HPI and below Exam Narrative Exam Narrative: Vital signs: Reviewed. General Appearance: Alert and oriented. No acute distress. HEENT: NCAT, EOMI, not icteric. External ears normal. No rhinorrhea. Moist mucous membranes. Neck: Supple, full range of motion, no observable masses, No meningeal sign. Respiratory: No distress. Cardiovascular: Normal heart sounds, no murmurs. Gastrointestinal: Non-tender abdomen. Musculoskeletal: No leg or arm pain. Skin: Warm and dry, no rash. Neurological: Normal Gait, Grossly intact. Psychiatric: Appropriate for situation. Course Reevaluation(s) Reevaluation: On reassessment, patient is resting comfortably. Noted some nausea treated with Zofran and notes resolution. Time: 15:35 Vital Signs Vital signs: Vital Signs Temperature 36.8 C 06/21/25 13:05 Pulse 78 06/21/25 13:05 Respiratory Rate 14 06/21/25 13:05 Blood Pressure 121/83 06/21/25 13:05 Pulse Oximetry 99 06/21/25 13:05 Temperature 36.8 C 06/21/25 13:05 Temperature Source Oral 06/21/25 13:05 Pulse 78 06/21/25 13:05 Respiratory Rate 14 06/21/25 13:05 Blood Pressure 121/83 06/21/25 13:05 Blood Pressure Position Sitting 06/21/25 13:05 Pulse Oximetry 99 06/21/25 13:05 Oxygen Delivery Method Room Air 06/21/25 13:05 Oxygen Flow Rate 0 06/21/25 13:05 Medical Decision Making Persistent pulling chest pain started while doing laundry, with shortness of breath. Pain worsens with deep breaths, improves slightly when sitting up or leaning forward. Differential Diagnosis: - Myocardial ischemia: Low suspicion, no risk factors. EKG showed no acute damage. Troponin test ordered. - Myocarditis: Unlikely, without fever. BNP test ordered. - Heart failure: Low suspicion. BNP test ordered. ED Course: EKG: No acute damage. Troponin and BNP tests ordered. Results shared and discussed with the patient who is agreeable to plan to obtain CTA of her chest to rule out PE given her elevated BNP without a clear baseline. She is also agreeable plan for if studies are normal that we will do an ambulatory pulse ox to assess symptoms, pulse and oxygenation capabilities. If patient is able to pass the test she is agreeable with the plan for discharge to follow-up with dentistry and cardiology as I suspect that her BNP is most likely a chronic finding given her lack of acute signs of heart failure on examination. Patient Jayson signed out to Dr. Reed pending CT findings, ambulatory pulse ox assessment and disposition. Imaging Data Radiologic Study: Radiologist's impression: Exam(s) XR PORTABLE CHEST AP EXAM: XR PORTABLE CHEST AP CLINICAL HISTORY: Chest pain. TECHNIQUE: 2D digital imaging was performed. COMPARISON: No exams were available for comparison FINDINGS: Single AP portable view. Heart size is upper normal. The mediastinum is not widened. Lungs are clear. No infiltrates nor obvious pleural effusions. IMPRESSION: No acute pulmonary findings on this single AP portable view of the chest. DATA REPOSITORY: RADIATION DOSE DELIVERED: Lab Data Labs: Laboratory Tests Range/Units 06/21/25 06/21/25 13:30 14:30 WBC (4.4-10.8) 10^3/uL 10.21 RBC (3.93-5.22) 10^6/uL 4.61 Hgb (11.2-15.7) g/dL 14.2 Hct (36.0-46.0) % 43.7 MCV (80-95) fL 95 MCH (27.0-33.0) pg 30.8 MCHC (32.0-36.0) % 32.5 RDW (11.7-14.6) % 13.0 Plt Count (130-400) 10^3/uL 307 MPV (8.0-11.0) fL 10.2 Immature Gran % % 0.6 Neutrophils % % 77.6 Lymphocytes % % 14.6 Monocytes % % 5.5 Eosinophils % % 1.4 Basophils % % 0.3 Nucleated RBC % (0.0-0.3) % 0.0 Absolute Neutrophils (1.2-6.7) 10^3/uL 7.93 H Absolute Lymphocytes (1.2-3.4) 10^3/uL 1.49 Absolute Monocytes (0.1-0.8) 10^3/uL 0.56 Absolute Eosinophils (0.0-0.7) 10^3/uL 0.14 Absolute Basophils (0.0-0.2) 10^3/uL 0.03 Sodium (136-145) mmol/L 141 Potassium (3.5-5.1) mmol/L 4.9 Chloride (98-107) mmol/L 104 Carbon Dioxide (21.0-32.0) mmol/L 27.8 Anion Gap (3-11) mmol/L 9.2 BUN (7-18) mg/dL 7 Creatinine (0.55-1.02) mg/dL 0.9 Est GFR (CKD-EPI 2020) (mL/min/1.73m2) 86.57 Glucose (74-106) mg/dL 93 Calcium (8.5-10.1) mg/dL 10.1 Magnesium (1.8-2.4) mg/dL 2.4 Total Bilirubin (0.2-1.0) mg/dL 0.9 AST (15-37) U/L 29 ALT (14-59) U/L 30 Alkaline Phosphatase (46-116) U/L 79 Troponin I (<or=51) ng/L 10 10 NT-Pro-B Natriuret Pep (<300) pg/mL 4338 H Total Protein (6.4-8.2) g/dL 7.9 Albumin (3.4-5.0) g/dL 3.9 Serum HCG, Qual Negative ECG Data Interpretation: Rhythm: NSR Rate: [] [place]: Normal axis Intervals: Normal intervals Other findings: No acute ST segment changes to suggest acute ischemia. T wave inversions in V5 and V6, which are consistent with prior EKG dated October 17, 2024 PFSH All Active Problems (Updated 06/21/25 @ 15:38 by Duane Barksdale MD) Atypical chest pain (Acute) Cough (Acute) Septic discitis of lumbar region (Acute) Septic arthritis of knee, right (Acute) Septic arthritis of shoulder, right (Acute) Infective endocarditis of tricuspid valve (Acute) Medical History Ectopic atrioventricular node tachycardia MSSA bacteremia Opioid use disorder Septic pulmonary embolism Right heart failure Smoker Social History (Updated 11/23/24 @ 19:55 by Ervin Bartlett) Smoking/Tobacco Use Status: Current every day Tobacco Type: cigarettes Years smoked: 10 Tobacco: How many years used: 10 Smoking risk assessment performed?: Yes Alcohol Intake: former Drug use: Current Sobriety Substance use type: former substance user and IV drugs Housing: house Additional Social history: Living with mother and 3 kids in [facility]
[2025-06-21 13:46] LABS: Abs Immature Grans 0.06 10^3/uL (0.0-0.06); HCT 43.7 % (36.0-46.0); HGB 14.2 g/dL (11.2-15.7); Immature Grans % 0.6 %; MCH 30.8 pg (27.0-33.0); MCHC 32.5 % (32.0-36.0); MCV 95 fL (80-95); MPV 10.2 fL (8.0-11.0); Platelet Count 307 10^3/uL (130-400); RBC 4.61 10^6/uL (3.93-5.22); RDW 13.0 % (11.7-14.6); RDW-SD 44.6 fL; WBC 10.21 10^3/uL (4.4-10.8)
[2025-06-21 14:05] LABS: HCG Qual (Serum) Negative
[2025-06-21 14:12] LABS: ALT 30 U/L (14-59); AST 29 U/L (15-37); Albumin 3.9 g/dL (3.4-5.0); Alkaline Phosphatase 79 U/L (46-116); Anion Gap 9.2 mmol/L (3-11); BUN 7 mg/dL (7-18); Bilirubin, Total 0.9 mg/dL (0.2-1.0); CO2 27.8 mmol/L (21.0-32.0); Calcium 10.1 mg/dL (8.5-10.1); Chloride 104 mmol/L (98-107); Estimated GFR 86.57 (mL/min/1.73m2); Glucose 93 mg/dL (74-106); Magnesium 2.4 mg/dL (1.8-2.4); NT-proBNP 4338 pg/mL (<300); Potassium 4.9 mmol/L (3.5-5.1); Sodium 141 mmol/L (136-145); Total Protein 7.9 g/dL (6.4-8.2); Troponin I 10 ng/L (<or=51)
[2025-06-21 15:05] LABS: Troponin I 10 ng/L (<or=51)
[2025-06-21] MEDS: Normal Saline Flush 10 ML SYR IVP (15:17)
[2025-06-21] MEDS: Normal Saline - Diluent 50 ML VIAL IJ (15:18)
[2025-06-21] MEDS: Omnipaque 350 MG/ML 100 ML BTL IJ (15:18)
--- NOTE | 2025-06-21 15:30 | DI.CT_ITS ---
Exam(s) CT CHEST PE CTA EXAM: CT CHEST PE CTA CLINICAL HISTORY: CP, SOB, elevated BNP without clincial signs of HF. TECHNIQUE: Imaging Protocol: Axial CT angiography was performed with multi- slice acquisition and multi-planar reconstructions as well as axial, coronal and sagittal MIP reconstructions. Computer aided detection (CAD) was utilized. CONTRAST MATERIAL: Intravenous: Omnipaque 350 Contrast volume:75 ml COMPARISON: CT CT CHEST PE ABD PELVIS W from 10/17/2024 CR XR PORTABLE CHEST AP from 06/21/2025 FINDINGS: Pulmonary Arteries: No evidence of filling defect to suggest pulmonary emboli. Pulmonary arteries are not abnormally dilated. Mediastinum and [place]: No dominant adenopathy or fluid collection. Pulmonary parenchyma: Not well evaluated due to expiratory changes and respiratory motion. There are scattered bilateral ground-glass opacities. No consolidation or dominant measurable mass. Pleura: No effusion or pneumothorax. Heart: There is significant dilatation of the right atrium which appears new compared with the previous exam. There is reflux of contrast into the IVC and hepatic veins. No coronary artery calcifications are seen. Aorta: Thoracic aorta non-dilated. No dissection. Upper abdomen: No acute findings. Bones: Unremarkable for age. Tubes, Catheters, and Lines: None Soft tissues: Unremarkable. IMPRESSION: No evidence of pulmonary embolism. Dilatation of the right atrium and reflux of contrast into the IVC and hepatic veins which could indicate tricuspid valve disease. Limited evaluation of the pulmonary parenchyma due to expiratory changes. Mild bilateral ground-glass opacities. Findings called to Dr. Reed of the emergency department RADIATION DOSE DELIVERED: Total DLP DATA REPOSITORY: All CT scans at this facility are submitted to the National Radiology Data Registry (NRDR) Dose Index Registry (DIR) with the [employer] (ACR). RADIATION OPTIMIZATION: All CT scans at this facility use at least one of these dose optimization techniques: automated exposure control; mA and/or kV adjustment per patient size (includes targeted exams where dose is matched to clinical indication); or iterative reconstruction.
--- NOTE | 2025-06-21 16:23 | ED.PROG_ITS ---
Date of service: 06/21/25 Time of Service: 16:23 Medical Decision Making Patient signed out to me pending CT read which shows a dilated right atrium which she has had on prior echoes including the one in November. She has nonspecific groundglass opacities. proBNP is elevated which I suspect is from the tricuspid regurg and right atrial enlargement. She is ambulating with an O2 sat of 97% without visible signs of dyspnea. Given her elevated proBNP I am going to start her on a low-dose Lasix. She has plans to see a dentist in [place] and also is going to follow-up with cardiac surgery at [facility]. She states that her right lower jaw has some discomfort but it is part of baseline, she has no signs of Sandoval's or apical abscesses. I am going to start her on clindamycin until she can see the dentist. Return precautions given Cyclobenzaprine was sent to the pharmacy on this day, patient was advised she does not need to fill this and should not fill it. Discharge Plan Disposition Patient Disposition: Home Condition: Stable Discharge Details Clinical Impression: Atypical chest pain Primary Care Provider: None,None ED Provider: Dominic Reed Home Meds and New Rx's Prescriptions: New cyclobenzaprine 10 mg tablet 10 mg PO TID PRNQty: 20 0RF clindamycin HCl 150 mg capsule 450 mg PO TID 7 Days Qty: 63 0RF furosemide [Lasix] 20 mg tablet 20 mg PO DAILY Qty: 30 0RF Continued acetaminophen 325 mg Tablet 650 mg PO Q6H PRN PRNQty: 30 0RF ibuprofen 400 mg Tablet 400 mg PO QID PRN PRNQty: 30 0RF No Action folic acid 1 mg Tablet 1 mg PO DAILY Qty: 30 0RF metoprolol tartrate 25 mg Tablet 25 mg PO BID Qty: 60 0RF nicotine 21 mg/24 hr Patch 24 Hour 21 mg transdermal DAILY Qty: 28 0RF Discharge Instructions Additional Instructions: Is important that you get your dental issues resolved so they can have your tricuspid valve replaced. Over time this is going to put strain on your heart. I am putting you on a medication to help get some fluid out of your body and also putting you on an antibiotic until you can see the dentist. Your cardiac enzymes were negative which shows there is no signs of etiology such as heart attack as a cause for your symptoms. If you feel more ill or have new symptoms such as high fevers return to the emergency department for reevaluation.
[2025-06-21] MEDS: Furosemide 20 MG TAB PO (16:48)
[2025-06-21] MEDS: Clindamycin 150 MG CAP 450 MG PO (16:48)
[2025-06-21 17:05] LABS: Troponin I 10 ng/L (<or=51)
== END 2025-06-21 16:58 | disposition home or self-care (01) ==
PROVIDERS: General Practice; Emergency Provider Emergency Medicine
DX: R07.89 Other chest pain (principal)
CPT/HCPCS: 99285; 99284; 00123; 36415; 71275; 80053; 93005; 71045; 83735; 83880; 84484; 84703; 85025; 93010; J3490

== ENCOUNTER 2025-08-28 18:47 | Emergency (ER) | payer MEDICAID, SELFPAY ==
[2025-08-28 18:49] VITALS: BP 114/72; PULSE 100; RESP 18; TEMP 36.8; O2SAT 98
[2025-08-28 18:58] VITALS: BP 114/72; PULSE 100; RESP 18; TEMP 36.8; O2SAT 100
--- NOTE | 2025-08-28 19:15 | DI.RAD_ITS ---
Exam(s) XR FOREARM LT EXAM: XR FOREARM LT CLINICAL HISTORY: abscess, ivda eval fb. TECHNIQUE: 2D digital imaging was performed of the left forearm. Two views were obtained. AP and lateral views were obtained. COMPARISON: No exams were available for comparison FINDINGS: BONES: No acute fracture is present. No bony destructive lesion is seen. Visualized portion of elbow and wrist joints are unremarkable. SOFT TISSUE: There is focal soft tissue swelling at the anterior aspect of the mid forearm. No radiopaque foreign body or soft tissue gas is seen. IMPRESSION: 1. No radiopaque foreign body. 2. Focal soft tissue swelling anteriorly in the mid forearm. 3. The preliminary [facility] report was reviewed. DATA REPOSITORY: RADIATION DOSE DELIVERED:
[2025-08-28] MEDS: diazePAM 5 MG TAB PO (19:33)
[2025-08-28] MEDS: Lidocaine/Epinephri/Tetracaine Topical Gel 3 ML TP (19:34)
[2025-08-28 20:17] VITALS: BP 118/68; PULSE 90; RESP 18; O2SAT 99
[2025-08-28] MEDS: Lidocaine 1% Pres-Free 5 ML VIAL (21:04)
--- NOTE | 2025-08-28 21:16 | DI.[facility]_ITS ---
PROCEDURE INFORMATION: Exam: XR Left Forearm Exam date and time: 08/28/2025 7:53 PM Age: 35 years old Clinical indication: Other: Abcess. Ivda eval fb TECHNIQUE: Imaging protocol: Radiologic exam of the left forearm. Views: 2 views. COMPARISON: No relevant prior studies available. FINDINGS: Bones/joints: Normal. Soft tissues: Ventral soft tissue edema ventral distal forearm. No radiodense foreign body. IMPRESSION: No radiodense foreign body. Dictated and Authenticated by: Modesto Mejia MD. Orderin Mariam Valdez MD
[2025-08-28] MEDS: Clindamycin 150 MG CAP, 12 CAPS/BTL 450 MG PO (21:42)
[2025-08-28 21:45] VITALS: BP 120/72; PULSE 88; RESP 16; O2SAT 99
--- NOTE | 2025-08-29 22:31 | W.ED.GENAD ---
Discharge Plan Disposition Patient Disposition: Home Condition: Stable Discharge Details Clinical Impression: Abscess of arm, left Primary Care Provider: None,None ED Provider: Courtney Becerra Home Meds and New Rx's Prescriptions: New clindamycin HCl [Cleocin HCl] 150 mg capsule 450 mg PO TID Qty: 90 0RF Continued acetaminophen 325 mg Tablet 650 mg PO Q6H PRN PRNQty: 30 0RF folic acid 1 mg Tablet 1 mg PO DAILY Qty: 30 0RF ibuprofen 400 mg Tablet 400 mg PO QID PRN PRNQty: 30 0RF metoprolol tartrate 25 mg Tablet 25 mg PO BID Qty: 60 0RF nicotine 21 mg/24 hr Patch 24 Hour 21 mg transdermal DAILY Qty: 28 0RF cyclobenzaprine 10 mg tablet 10 mg PO TID PRNQty: 20 0RF furosemide [Lasix] 20 mg tablet 20 mg PO DAILY Qty: 30 0RF Discharge Instructions Instructions: Abscess Incision and Drainage (DC) Additional Instructions: keep wound clean change dressing as it becomes saturated wick removal in 3 days and recheck follow-up with [facility] clinic :) return with spreading redness, fever, worsening pain Discharge Data Discharge Date/Time-TO BE ENTERED AT DEPARTURE: 08/28/25 21:49 HPI General Date/Time Provider Initiated Documentation: 08/28/25 19:05. HPI Narrative: This 35-year-old female with history of IV drug use last use 6 days ago presents with abscess to her left forearm which started several days ago. She denies any fever or chills she denies any chest pain or shortness of breath. She does have a remote history of endocarditis. She wishes to follow-up with the [facility] clinic and will call them tomorrow but denies Kingdom recovery today Related Data Home Medications ?Medication ?Instructions ?Recorded ?Confirmed acetaminophen 325 mg tablet 650 mg (2 x 325 mg) PO Q6H PRN PRN 12/12/24 08/28/25 #30 tabs folic acid 1 mg tablet 1 mg PO DAILY #30 tabs 12/12/24 08/28/25 ibuprofen 400 mg tablet 400 mg PO QID PRN PRN #30 tabs 12/12/24 08/28/25 metoprolol tartrate 25 mg tablet 25 mg PO BID #60 tabs 12/12/24 08/28/25 nicotine 21 mg/24 hr daily 21 mg transdermal DAILY #28 ea 12/12/24 08/28/25 transdermal patch cyclobenzaprine 10 mg tablet 10 mg PO TID PRN #20 tabs 06/21/25 08/28/25 furosemide 20 mg tablet (Lasix) 20 mg PO DAILY #30 tabs 06/21/25 08/28/25 clindamycin HCl 150 mg capsule 450 mg (3 x 150 mg) PO TID #90 caps 08/28/25 (Cleocin HCl) Previous Rx's ?Medication ?Instructions ?Recorded acetaminophen 325 mg tablet 650 mg (2 x 325 mg) PO Q6H PRN PRN 12/12/24 #30 tabs folic acid 1 mg tablet 1 mg PO DAILY #30 tabs 12/12/24 ibuprofen 400 mg tablet 400 mg PO QID PRN PRN #30 tabs 12/12/24 metoprolol tartrate 25 mg tablet 25 mg PO BID #60 tabs 12/12/24 nicotine 21 mg/24 hr daily 21 mg transdermal DAILY #28 ea 12/12/24 transdermal patch cyclobenzaprine 10 mg tablet 10 mg PO TID PRN #20 tabs 06/21/25 furosemide 20 mg tablet (Lasix) 20 mg PO DAILY #30 tabs 06/21/25 clindamycin HCl 150 mg capsule 450 mg (3 x 150 mg) PO TID #90 caps 08/28/25 (Cleocin HCl) Allergies Allergy/AdvReac Type Severity Reaction Status Date / Time Penicillins Allergy Severe Anaphylaxsi Verified 08/28/25 18:59 s General Stated Complaint: Cellulitis FERNY: 3 Exam Narrative Exam Narrative: Alert and oriented 35-year-old female in no acute distress with 2 inch x 2 inch abscess which is fluctuant to her left forearm, she is neurovascularly intact she has a 3 inch lymphangitis, no drainage, no crepitus, Course Vital Signs Vital signs: Vital Signs Temperature 36.8 C 08/28/25 18:49 Pulse 100 H 08/28/25 18:49 Respiratory Rate 18 08/28/25 18:49 Blood Pressure 114/72 08/28/25 18:49 Pulse Oximetry 98 08/28/25 18:49 Temperature 36.8 C 08/28/25 18:58 Temperature Source Oral 08/28/25 18:58 Pulse 88 08/28/25 21:45 Respiratory Rate 16 08/28/25 21:45 Blood Pressure 120/72 08/28/25 21:45 Blood Pressure Mean 84 08/28/25 20:17 Blood Pressure Position Sitting 08/28/25 18:58 Pulse Oximetry 99 08/28/25 21:45 Oxygen Delivery Method Room Air 08/28/25 20:17 Oxygen Flow Rate 0 08/28/25 20:17 Pain Level 8 08/28/25 18:49 Procedure Abscess Drainage Date of Procedure: 08/28/25 Time of Procedure: 19:00 Provider that performed the procedure: Courtney Becerra Standard Time Out Performed: Yes Patient Consented: Verbally Location of Exam: Upper extremity/left Medical Decision Making Results: X-ray of forearm does not show acute abnormality per radiology interpretation my review Assessment and plan will perform incision and drainage which patient tolerated well and placed patient on clindamycin which she will take 3 times daily for 10 days. Wick was placed which will need to be removed in 3 days. Recheck in 2 to 3 days in the emergency department discharged home in stable condition without systemic signs of illness encourage patient to present to [facility] tomorrow for assessment. Discharged in care of sister alert and oriented in no acute distress and not systemically PFSH All Active Problems (Updated 08/28/25 @ 21:36 by KATHYA Avitia) Abscess of arm, left (Acute) Septic discitis of lumbar region (Acute) Septic arthritis of knee, right (Acute) Septic arthritis of shoulder, right (Acute) Infective endocarditis of tricuspid valve (Acute) Medical History Ectopic atrioventricular node tachycardia MSSA bacteremia Opioid use disorder Septic pulmonary embolism Right heart failure Smoker Social History (Updated 11/23/24 @ 19:55 by Ervin Bartlett) Smoking/Tobacco Use Status: Current every day Tobacco Type: cigarettes Years smoked: 10 Tobacco: How many years used: 10 Smoking risk assessment performed?: Yes Alcohol Intake: former Drug use: Daily Substance use type: marijuana, opiates and IV drugs Details: last used IV fentanyl was 6 days prior to coming to the ER Housing: house Additional Social history: Living with mother and 3 kids in [facility] POCUS Exam (ED) Limited Soft Tissue Exam PROVIDER THAT PERFORMED THE STUDY: Courtney Becerra
== END 2025-08-28 21:49 | disposition home or self-care (01) ==
PROVIDERS: Emergency Provider Physician Assistant
DX: L02.414 Cutaneous abscess of left upper limb (principal)
CPT/HCPCS: 99283; 99284; 10060; 73090; J2003